=== PATIENT | female | born 1945 | race Caucasian/White ===

== ENCOUNTER 2018-02-21 09:00 | Inpatient (IN) | payer BC, MEDICARE ==
[2018-02-21 10:34] LABS: Hemoglobin 12.3 g/dL (12.0-16.0); Mean Corpuscular HGB CONC 33.1 g/dL (32.0-36.0); Mean Corpuscular Hemoglobin 32.7 pg (27.0-31.0); Mean Corpuscular Volume 98.9 fl (81.0-99.0); Mean Platelet Volume 6.7 fL (7.4-10.4); Platelet Count 244 thou/uL (130-400); RBC Distribution Width 11.3 % (11.5-14.5); Red Blood Cell (RBC) Count 3.77 mill/uL (4.20-5.40)
[2018-02-21 10:53] LABS: Anion Gap 11 mmol/L (10-20); BUN (Urea Nitrogen) 12 mg/dL (9.8-20.1); Calc. Creatinine Clearance 0 mL/min (70-130); Calcium 9.9 mg/dL (7.8-10.44); Carbon Dioxide 25 mmol/L (23-31); Chloride 105 mmol/L (98-107); Estimated GFR-MDRD 86; Glucose 107 mg/dL (80-115); Potassium 3.9 mmol/L (3.5-5.1); Sodium 137 mmol/L (136-145)
[2018-02-22] MEDS ORDERED: Heparin 10,000 UNITS/1 ML VIAL 30,000 UNITS in Sodium Chloride 0.9% 1,000 ML FS SCH (06:30)
[2018-02-22] MEDS ORDERED: Clindamycin/D5W 900 mg/50 ml Premix Bag ONE (06:44)
[2018-02-22] MEDS ORDERED: Levofloxacin 500 mg/D5W 100 ml Premix Bag ONE (06:44)
[2018-02-22] MEDS ORDERED: Midazolam HCl 2 mg/2 ml Vial ONE (06:54)
[2018-02-22] MEDS ORDERED: Fentanyl 250 MCG/5 ML VIAL ONE ×2 (07:21→09:57)
[2018-02-22] MEDS ORDERED: Midazolam HCl 5 mg/5 ml Vial ONE (07:21)
[2018-02-22] MEDS ORDERED: Fentanyl 100 MCG/2 ML VIAL ONE (09:45)
[2018-02-22] MEDS ORDERED: Ondansetron HCl/PF 4 MG/2 ML Vial IVP PRN (10:57)
[2018-02-22] MEDS ORDERED: Acetaminophen 325 MG TAB PO PRN (10:57)
[2018-02-22] MEDS ORDERED: Promethazine HCl 25 MG/ML VIAL IM PRN (10:57)
[2018-02-22] MEDS ORDERED: hydrALAZINE 20 MG/ML VIAL SLOW IVP PRN (10:57)
[2018-02-22] MEDS ORDERED: Bisacodyl 10 MG SUPP PR PRN (10:57)
[2018-02-22] MEDS ORDERED: Nitroglycerin 50 MG/250 ML BOT 250 ML IVPB PRN (10:57)
[2018-02-22] MEDS ORDERED: Potassium Chloride 20 MEQ/100 ML PREMIX BAG IVPB PRN (10:57)
[2018-02-22] MEDS ORDERED: Post-Op Insulin Drip Protocol IVPB ONE (10:57)
[2018-02-22] MEDS ORDERED: DOPamine 400 MG/D5W 250 ML 250 ML IVPB PRN (10:57)
[2018-02-22] MEDS ORDERED: HYDROcodone/Acetaminophen 5/325 mg Tablet PO PRN ×2 (10:57)
[2018-02-22] MEDS ORDERED: Mag-Al 1200 mg/1200 mg/30 ML UDCUP PO PRN (10:57)
[2018-02-22] MEDS ORDERED: Norepinephrine 8 MG/0.9% NS 250 ML IVPB PRN (10:57)
[2018-02-22] MEDS ORDERED: Guaifenesin DM 100-10/5 ML UDCUP PO PRN (10:57)
[2018-02-22] MEDS ORDERED: Fentanyl 100 MCG/2 ML VIAL SLOW IVP PRN (10:57)
[2018-02-22] MEDS ORDERED: Bisacodyl 5 MG TAB PO PRN (10:57)
[2018-02-22] MEDS ORDERED: Hetastarch 6% 500 ML 500 ML IVPB PRN (10:57)
[2018-02-22] MEDS ORDERED: Morphine 4 MG/ML VIAL SLOW IVP PRN (10:57)
[2018-02-22] MEDS ORDERED: niCARdipine HCl 25 MG in Sodium Chloride 0.9% 250 ML 240 ML IVPB PRN (10:57)
[2018-02-22] MEDS ORDERED: Magnesium 2 GM/NS 0.9% 100 ML 2 GM in Premix Bag 1 BAG IVPB SCH (11:00)
[2018-02-22] MEDS ORDERED: PHENYLEPHRINE-NS 100 MCG/ML 10 ML SYRINGE ONE ×2 (11:11→11:27)
--- NOTE | 2018-02-22 11:16 | OP ---
DATE OF PROCEDURE: 02/22/2018 PROCEDURE: Coronary bypass graft x3, saphenous vein grafts to a 1.25 mm diseased diagonal, 1.25 mm o btuse marginal, a 3 mm distal right coronary artery, vein was good. SURGEON: Dr. Domingo Gomez STEAM TRAP MAN: Dr. Palmer. PROCEDURE IN DETAIL: After adequate anesthesia had been obtained, the patient was prepped and draped . I had previously ultrasounded her left thigh and endovascular vein harvest was then performed here . Following completion of this, median sternotomy was performed, the patient heparinized. Pericardi um was opened. Traction sutures secured, and the aorta and right atrium were cannulated. Cardiopulm onary bypass was instituted. Aorta was cross-clamped and a liter of cold blood cardioplegia was give n through the aortic root. The right coronary artery was opened distally and saphenous vein anastomo sis completed here. Vein was cut to length and attention turned to the diagonal. The LAD was identi fied distally as well as a large third diagonal. The second diagonal was then identified and opened and had posterior plaquing. Saphenous vein was anastomosed here. Following completion of this, atte ntion was turned to the lateral aspect of the heart, where an obtuse marginal had been marked, it was opened and saphenous vein anastomosis completed here with the distal anastomosis accepting a 1 mm pr obe prior to completing the suture line. Following this, the cross-clamp was removed and the partial occlusion clamp placed, and 3 proximal anastomosis performed on the aortic root. Air was then freed from the graft. Distal anastomoses were hemostatic and the patient was then weaned from cardiopulmo nary bypass. Cannulas were removed, and protamine given systemically. Aortic cannulation site was s ecured with an additional 4-0 Prolene suture. Mediastinal drains x1 was placed following which the s ternum was reapproximated with #7 interrupted wire. A ring markers were placed around all 3 saphenou s vein proximal anastomosis. Vancomycin paste was used on the sternal edges as well as platelet rich blood, and platelet-poor plasma. Subcutaneous tissue and skin were closed in layers. The patient i s to be taken to the ICU in guarded condition.
[2018-02-22] MEDS ORDERED: Dextrose 50% Abboject 50 ML SYRINGE SLOW IVP PRN (11:18)
[2018-02-22] MEDS ORDERED: Dextrose 5% in Water 1,000 ML IV PRN (11:18)
[2018-02-22] MEDS ORDERED: Insulin Regular 300 UNITS/3 ML VIAL SC PRN (11:18)
[2018-02-22] MEDS ORDERED: Aminocaproic Acid 5 GM/20 ML VIAL ONE (11:27)
[2018-02-22] MEDS ORDERED: Thrombin 5000 UNITS/5 ML VIAL ONE (11:27)
[2018-02-22] MEDS ORDERED: Magnesium 5 GM/10 ML VIAL ONE (11:27)
[2018-02-22] MEDS ORDERED: Protamine Sulfate 250 MG/25 ML VIAL ONE (11:27)
[2018-02-22] MEDS ORDERED: Heparin 5,000 UNITS/ML VIAL ONE (11:27)
[2018-02-22] MEDS ORDERED: Propofol 200 MG/20 ML VIAL ONE (11:27)
[2018-02-22] MEDS ORDERED: Heparin 30,000 units/30 ml VIAL ONE (11:27)
[2018-02-22] MEDS ORDERED: Potassium Chloride 60 MEQ/30 ML VIAL ONE (11:27)
[2018-02-22] MEDS ORDERED: Lidocaine 1% PF 5 ML VIAL ONE (11:27)
[2018-02-22] MEDS: Lactated Ringer's 1,000 ML IV SCH (11:27)
[2018-02-22] MEDS ORDERED: Cardioplegic Soln 1,000 ML BAG ONE (11:27)
[2018-02-22] MEDS ORDERED: Lidocaine 2% PF 100 mg/5 ml Syringe ONE (11:27)
[2018-02-22] MEDS ORDERED: Sodium Bicarb 50 MEQ/50 ML VIAL ONE (11:27)
[2018-02-22] MEDS ORDERED: DOPamine 400 MG/10 ML VIAL ONE (11:27)
[2018-02-22] MEDS ORDERED: Calcium Chloride 1 GM/10 ML Abboject SYRINGE ONE (11:27)
[2018-02-22 11:28] LABS: Actual Bicarbonate (HCO3a) 20.4 mEq/L (22-26); Base Excess (BEa) -3.8 mEq/L (0 (+/-) 2.5); CO2 Tension 33.8 mmHg (35.0-45.0); O2 Tension (PaO2) 234.1 mmHg (80.0-100.0)
[2018-02-22 11:29] LABS: Calcium, Ionized 1.4 mmol/L (1.12-1.30); Puncture Site LINE
[2018-02-22] MEDS: Ketorolac Tromethamine 30 MG/ML VIAL IVP SCH ×3 (11:30→23:01)
[2018-02-22 11:36] LABS: #Eosinphils 0.1 thou/uL (0.0-0.7); #Lymphocytes 0.6 thou/uL (1.20-3.40); #Monocytes 0.4 thou/uL (0.11-0.59); #Neutrophils 7.7 thou/uL (1.40-6.50); %Basophils 0.4 % (0.0-1.0); %Eosinophils 1.2 % (0.0-10.0); %Lymphocytes 6.5 % (21.0-51.0); %Monocytes 4.9 % (0.0-10.0); %Neutrophils 87.1 % (42.0-75.0); Hemoglobin 9.2 g/dL (12.0-16.0); Mean Corpuscular HGB CONC 33.1 g/dL (32.0-36.0); Mean Corpuscular Hemoglobin 33.3 pg (27.0-31.0); Mean Platelet Volume 6.6 fL (7.4-10.4); Platelet Count 144 thou/uL (130-400); RBC Distribution Width 11.3 % (11.5-14.5); Red Blood Cell (RBC) Count 2.77 mill/uL (4.20-5.40); White Blood Cell (WBC) Count 8.9 thou/uL (4.8-10.8)
[2018-02-22 11:42] LABS: PTT 28.1 SEC (22.9-36.1)
[2018-02-22 11:43] LABS: INR-International Normal Ratio 1.4; Prothrombin Time 17.7 SEC (12.0-14.7)
[2018-02-22 11:56] LABS: Anion Gap 9 mmol/L (10-20); BUN (Urea Nitrogen) 8 mg/dL (9.8-20.1); Calc. Creatinine Clearance 77 mL/min (70-130); Calcium 9.1 mg/dL (7.8-10.44); Carbon Dioxide 19 mmol/L (23-31); Chloride 113 mmol/L (98-107); Estimated GFR-MDRD Greater than 90; Glucose 162 mg/dL (80-115); Potassium 4.1 mmol/L (3.5-5.1); Sodium 137 mmol/L (136-145)
[2018-02-22] MEDS: Clindamycin/D5W 900 MG in Premix Bag 1 BAG IVPB SCH ×3 (12:38→23:01)
--- NOTE | 2018-02-22 12:51 | RAD ---
SINGLE VIEW CHEST: Date: 02/22/18 COMPARISON: None. HISTORY: Status post open heart surgery. FINDINGS: Single view of the chest shows normal sized cardiomediastinal silhouette. The patient is status post sternotomy. A CABG has been performed. There is a right subclavian central venous catheter with its t ip in the superior vena cava. An endotracheal tube is seen with its tip at the lower border of the cl avicles. A mediastinal drain is seen. There is no evidence of consolidation, mass, pneumothorax, or p leural effusion. IMPRESSION: Appropriate position of lines and tubes status post sternotomy. POS: [facility]
[2018-02-22 13:13] VITALS: BMI 23.4
[2018-02-22] MEDS: Fentanyl 100 MCG/2 ML VIAL SLOW IVP PRN ×2 (16:06→21:58)
[2018-02-22 16:25] LABS: Actual Bicarbonate (HCO3a) 18.5 mEq/L (22-26); Base Excess (BEa) -6.4 mEq/L (0 (+/-) 2.5); CO2 Tension 34.7 mmHg (35.0-45.0); Hemoglobin (Hb) 9.4 g/dL (12.0-16.0); O2 Tension (PaO2) 175.6 mmHg (80.0-100.0); pH, Arterial 7.35 (7.35-7.45)
[2018-02-22 16:26] LABS: ALV-art Gradient 66.225 (0-20); Calcium, Ionized 1.3 mmol/L (1.12-1.30); Puncture Site LINE
[2018-02-22 17:36] LABS: Hemoglobin 9.7 g/dL (12.0-16.0)
[2018-02-22 17:59] LABS: Potassium 3.7 mmol/L (3.5-5.1)
[2018-02-22] MEDS ORDERED: Simvastatin 20 MG TAB PO SCH (21:00)
[2018-02-22] MEDS ORDERED: Famotidine/PF 20 mg/2ml Vial SLOW IVP SCH (21:00)
[2018-02-23] MEDS: Lactated Ringer's 1,000 ML IV SCH (01:48)
[2018-02-23 04:16] LABS: #Lymphocytes 0.7 thou/uL (1.20-3.40); #Monocytes 0.7 thou/uL (0.11-0.59); #Neutrophils 6.4 thou/uL (1.40-6.50); %Basophils 0.3 % (0.0-1.0); %Eosinophils 0.3 % (0.0-10.0); %Lymphocytes 8.8 % (21.0-51.0); %Monocytes 9.4 % (0.0-10.0); %Neutrophils 81.2 % (42.0-75.0); Hemoglobin 8.5 g/dL (12.0-16.0); Mean Corpuscular HGB CONC 33.3 g/dL (32.0-36.0); Mean Corpuscular Hemoglobin 32.9 pg (27.0-31.0); Mean Corpuscular Volume 98.7 fl (81.0-99.0); Mean Platelet Volume 7.1 fL (7.4-10.4); Platelet Count 123 thou/uL (130-400); RBC Distribution Width 11.5 % (11.5-14.5); Red Blood Cell (RBC) Count 2.58 mill/uL (4.20-5.40); White Blood Cell (WBC) Count 7.9 thou/uL (4.8-10.8)
[2018-02-23 04:26] LABS: Anion Gap 10 mmol/L (10-20); BUN (Urea Nitrogen) 8 mg/dL (9.8-20.1); Calc. Creatinine Clearance 87 mL/min (70-130); Calcium 7.8 mg/dL (7.8-10.44); Carbon Dioxide 20 mmol/L (23-31); Chloride 113 mmol/L (98-107); Estimated GFR-MDRD Greater than 90; Glucose 119 mg/dL (80-115); Potassium 3.9 mmol/L (3.5-5.1); Sodium 139 mmol/L (136-145)
[2018-02-23] MEDS: Clindamycin/D5W 900 MG in Premix Bag 1 BAG IVPB SCH (05:00)
[2018-02-23] MEDS: Ketorolac Tromethamine 30 MG/ML VIAL IVP SCH ×4 (05:14→23:55)
[2018-02-23] MEDS ORDERED: Mineral Oil ENEMA PR PRN (06:59)
[2018-02-23] MEDS ORDERED: Bisacodyl 5 MG TAB PO PRN (06:59)
[2018-02-23] MEDS ORDERED: Ondansetron HCl/PF 4 MG/2 ML Vial IVP PRN (06:59)
[2018-02-23] MEDS ORDERED: Mag-Al 1200 mg/1200 mg/30 ML UDCUP PO PRN (06:59)
[2018-02-23] MEDS ORDERED: Milk Of Magnesia 30 ML UDCUP PO PRN (06:59)
[2018-02-23] MEDS ORDERED: Bisacodyl 10 MG SUPP PR PRN (06:59)
[2018-02-23] MEDS ORDERED: Fentanyl 100 MCG/2 ML VIAL SLOW IVP PRN (06:59)
[2018-02-23] MEDS ORDERED: HYDROcodone/Acetaminophen 5/325 mg Tablet PO PRN (06:59)
[2018-02-23] MEDS ORDERED: Acetaminophen 325 MG TAB PO PRN (06:59)
[2018-02-23] MEDS ORDERED: Artificial Tears 18 DROP/0.9 ML EA EYE PRN (06:59)
[2018-02-23] MEDS ORDERED: Guaifenesin DM 100-10/5 ML UDCUP PO PRN (06:59)
[2018-02-23] MEDS ORDERED: Nitroglycerin 0.4 MG TAB (25 Tab Bottle) SL PRN (06:59)
[2018-02-23] MEDS ORDERED: Zolpidem Tartrate 5 MG TAB PO PRN (06:59)
--- NOTE | 2018-02-23 08:27 | RAD ---
CHEST 1 VIEW: HISTORY: Surgery. Followup. COMPARISON: 02/22/18. FINDINGS: Cardiac silhouette is magnified and enlarged. Pulmonary vasculature is accentuated by shallow inspir ation. Mediastinum is midline with postoperative changes. Mediastinal drain and right subclavian ce ntral venous catheter remain in place. Endotracheal catheter is no longer visible. Mild bibasilar a telectasis is stable. Dystrophic calcification associated with the left rotator cuff is now better v isualized. IMPRESSION: Interval extubation. Stable postoperative appearance of the chest. POS: [facility]
[2018-02-23] MEDS ORDERED: Aspirin 325 MG TAB PO SCH (09:00)
[2018-02-23] MEDS: Aspirin 325 mg Enteric Coated Tablet PO SCH (09:36)
[2018-02-23] MEDS: Famotidine 20 MG TAB PO SCH ×2 (09:36→20:41)
[2018-02-23] MEDS: Atorvastatin Calcium 40 MG TAB PO SCH (09:36)
[2018-02-23] MEDS: Polyethylene Glycol 3350 17 GM Packet PO SCH (09:43)
[2018-02-23] MEDS: HYDROcodone/Acetaminophen 5/325 mg Tablet PO PRN ×3 (12:08→20:39)
[2018-02-24] MEDS: HYDROcodone/Acetaminophen 5/325 mg Tablet PO PRN (00:20)
[2018-02-24 04:41] LABS: #Monocytes 0.9 thou/uL (0.11-0.59); #Neutrophils 6.2 thou/uL (1.40-6.50); %Basophils 0.4 % (0.0-1.0); %Eosinophils 0.3 % (0.0-10.0); %Lymphocytes 12.1 % (21.0-51.0); %Monocytes 11.2 % (0.0-10.0); %Neutrophils 75.9 % (42.0-75.0); Hemoglobin 8.3 g/dL (12.0-16.0); Mean Corpuscular HGB CONC 33.3 g/dL (32.0-36.0); Mean Corpuscular Hemoglobin 33.3 pg (27.0-31.0); Platelet Count 125 thou/uL (130-400); RBC Distribution Width 11.6 % (11.5-14.5); Red Blood Cell (RBC) Count 2.49 mill/uL (4.20-5.40); White Blood Cell (WBC) Count 8.2 thou/uL (4.8-10.8)
[2018-02-24] MEDS: Ketorolac Tromethamine 30 MG/ML VIAL IVP SCH (05:26)
[2018-02-24] MEDS: Famotidine 20 MG TAB PO SCH ×2 (07:23→21:50)
[2018-02-24] MEDS: Aspirin 325 mg Enteric Coated Tablet PO SCH (07:23)
[2018-02-24] MEDS: Magnesium Oxide 400 MG TAB PO SCH (07:23)
[2018-02-24] MEDS: Atorvastatin Calcium 40 MG TAB PO SCH (07:24)
[2018-02-24] MEDS: Polyethylene Glycol 3350 17 GM Packet PO SCH (07:27)
[2018-02-24] MEDS: traMADol HCl 50 MG TAB PO PRN ×3 (10:39→21:50)
[2018-02-25] MEDS: traMADol HCl 50 MG TAB PO PRN (04:58)
--- NOTE | 2018-02-25 06:37 | DIS ---
HOSPITAL COURSE: A 72-year-old female admitted and underwent coronary artery bypass graft x3 to the right OM and diagonal on 02/22/2018. She made good progress each day and will be discharged home on 02/25/2018 to resume her home medications plus tramadol 50 mg tablets for pain and aspirin 81 mg a da y. Discharge and follow up instructions have been given.
[2018-02-25 07:29] VITALS: TEMP 98.1
[2018-02-25] MEDS: Atorvastatin Calcium 40 MG TAB PO SCH (09:26)
[2018-02-25] MEDS: Aspirin 325 mg Enteric Coated Tablet PO SCH (09:26)
[2018-02-25] MEDS: Famotidine 20 MG TAB PO SCH (09:26)
[2018-02-25] MEDS: Polyethylene Glycol 3350 17 GM Packet PO SCH (09:27)
[2018-02-25] MEDS: Magnesium Oxide 400 MG TAB PO SCH (09:27)
[2018-02-25 11:07] VITALS: BP 130/59
--- NOTE | 2018-02-25 13:15 | PRG ---
DATE OF SERVICE: 02/25/2018 HISTORY: Ms. Langley is doing very well. She states she feels better than she has in several month s. She is ready for discharge. PHYSICAL EXAMINATION: VITAL SIGNS: Blood pressure 130/59, pulse 72, temperature 98.1. LUNGS: Clear to auscultation. CARDIAC: Regular rate and rhythm. ABDOMEN: Soft, nontender, nondistended. EXTREMITIES: No edema. IMPRESSION: 1. Coronary artery disease. 2. Status post bypass surgery. RECOMMENDATIONS: Ms. Langley appears to be doing well. She is currently on beta temitope therapy, s tatin therapy and aspirin. It would be okay for discharge from my standpoint. Would also encourage outpatient rehab. Plan is to follow up with us in the next 1 week.
[2018-03-01 10:16] LABS: CO2 Tension 32.1 mmHg (35.0-45.0); pH, Arterial 7.43 (7.35-7.45)
[2018-03-01 10:17] LABS: Base Excess (BEa) -2.6 mEq/L (0 (+/-) 2.5); Hemoglobin (Hb) 10.1 g/dL (12.0-16.0); O2 Tension (PaO2) 549.4 mmHg (80.0-100.0)
[2018-03-01 10:18] LABS: CO2 Tension 36.5 mmHg (35.0-45.0); pH, Arterial 7.39 (7.35-7.45)
[2018-03-01 10:18] LABS: Analyzer IN Cardio OR; Calcium, Ionized 1.1 mmol/L (1.12-1.30); Puncture Site ALINE
[2018-03-01 10:19] LABS: Actual Bicarbonate (HCO3a) 21.6 mEq/L (22-26); Base Excess (BEa) -2.9 mEq/L (0 (+/-) 2.5); Hematocrit-ABG 29.1 % (36.0-47.0); Hemoglobin (Hb) 9.6 g/dL (12.0-16.0); O2 Tension (PaO2) 556.1 mmHg (80.0-100.0)
[2018-03-01 10:20] LABS: Analyzer IN Cardio OR; Calcium, Ionized 1.1 mmol/L (1.12-1.30); Puncture Site ALINE
[2018-03-01 10:22] LABS: Base Excess (BEa) -1.2 mEq/L (0 (+/-) 2.5); CO2 Tension 35.7 mmHg (35.0-45.0); Hematocrit-ABG 21.4 % (36.0-47.0); Hemoglobin (Hb) 7.3 g/dL (12.0-16.0); O2 Tension (PaO2) 532.3 mmHg (80.0-100.0); pH, Arterial 7.43 (7.35-7.45)
[2018-03-01 10:23] LABS: Analyzer IN Cardio OR; Puncture Site ALINE
[2018-03-01 10:24] LABS: Actual Bicarbonate (HCO3a) 22.1 mEq/L (22-26); Base Excess (BEa) -3.2 mEq/L (0 (+/-) 2.5); CO2 Tension 40.6 mmHg (35.0-45.0); Hematocrit-ABG 23.7 % (36.0-47.0); O2 Tension (PaO2) 491.5 mmHg (80.0-100.0); pH, Arterial 7.35 (7.35-7.45)
[2018-03-01 10:25] LABS: Analyzer IN Cardio OR; Calcium, Ionized 1.1 mmol/L (1.12-1.30); Puncture Site ALINE
[2018-03-01 10:25] LABS: CO2 Tension 37.6 mmHg (35.0-45.0); pH, Arterial 7.37 (7.35-7.45)
[2018-03-01 10:26] LABS: Actual Bicarbonate (HCO3a) 21.1 mEq/L (22-26); Base Excess (BEa) -3.8 mEq/L (0 (+/-) 2.5); O2 Tension (PaO2) 509.4 mmHg (80.0-100.0)
[2018-03-01 10:27] LABS: Analyzer IN Cardio OR; Calcium, Ionized 1.5 mmol/L (1.12-1.30); Hemoglobin (Hb) 8.7 g/dL (12.0-16.0); Puncture Site ALINE
== END 2018-02-25 10:55 | disposition home or self-care (01) | DRG 236 ==
LOC: SURG A 02-22 05:51 → CCU 02-22 10:34 → 2NO 02-24 18:03
PROVIDERS: ADMIT Thoracic Surgery (Cardiothoracic Vascular Surgery); ATTEND Thoracic Surgery (Cardiothoracic Vascular Surgery)
PROC: 021209W Bypass Coronary Artery, Three Arteries from Aorta with Autologous Venous Tissue, Open Approach (ICD-10-PCS; principal; 2018-02-22)
PROC: 06BQ4ZZ Excision of Left Saphenous Vein, Percutaneous Endoscopic Approach (ICD-10-PCS; 2018-02-22)
PROC: 5A1221Z Performance of Cardiac Output, Continuous (ICD-10-PCS; 2018-02-22)
DX: I25.10 Atherosclerotic heart disease of native coronary artery without angina pectoris (principal); Z87.891 Personal history of nicotine dependence
CPT/HCPCS: 36415; 36416; 36430; 71045; 80048; 82805; 84132; 85025; 85027; 85610; 85730; 86850; 86900; 86901; 93005; 93010; 93798; 94002; J1265; J1642; J1644; J1815; J1885; J1956; J2001; J2250; J2405; J2704; J2720; J3010; J3370; J3475; J3480; J3490; J7050; P9045; S0017; S0028

== ENCOUNTER 2018-06-27 09:25 | Outpatient (CLI) | payer BC, MEDICARE | END 2018-06-27 09:26 | disposition home or self-care (01) | LOC: BICMAMMO 09:25 | PROVIDERS: ATTEND Internal Medicine | DX: Z08 Encounter for follow-up examination after completed treatment for malignant neoplasm (principal); Z85.3 Personal history of malignant neoplasm of breast; Z80.3 Family history of malignant neoplasm of breast | CPT/HCPCS: 77066; G0279 ==

== ENCOUNTER 2018-09-09 07:55 | Outpatient (CLI) | payer BC, MEDICARE ==
--- NOTE | 2018-09-09 10:08 | BD ---
DEXA BONE DENSITY STUDY: HISTORY: A 73-year-old female with osteoporosis. LUMBAR SPINE BMD (g/cm2) T-SCORE L1 0.696 -2.7 L2 0.694 -3.0 L3 0.824 -3.3 L4 0.779 -2.4 TOTAL 0.73 -2.9 Evidence for osteoporosis with increased risk for fracture. Bone mineral density has improved approx imately 1.8% from the prior, 09/10/2017, study. FEMUR BMD (g/cm2) T-SCORE LEFT FEMORAL NECK 0.550 -2.7 TOTAL 0.694 -2.0 Evidence for osteoporosis with high risk for fracture. Bone mineral density has decreased approximat jewel 1.9% from 09/10/2017. FRAX score for major osteoporotic fracture is 15% and hip fracture is 4.5%. POS: [facility]
== END 2018-09-09 07:56 | disposition home or self-care (01) ==
LOC: BICMAMMO 07:55
PROVIDERS: ATTEND Internal Medicine Rheumatology
DX: M81.0 Age-related osteoporosis without current pathological fracture (principal); Z79.899 Other long term (current) drug therapy
CPT/HCPCS: 77080

== ENCOUNTER 2019-03-29 10:35 | Outpatient (CLI) | payer BC, MEDICARE ==
--- NOTE | 2019-03-29 11:09 | ULT ---
THYROID ULTRASOUND INDICATION: History of thyroid cyst TECHNIQUE: Grayscale and color Doppler images were obtained of the thyroid gland. COMPARISON: CT of the soft tissues of the neck dated March 21, 2015 FINDINGS: Right thyroid lobe: The right thyroid lobe measures 4.6 x 1.6 x 1.5 cm. There are numerous scattered small cysts within the right thyroid lobe. There is a mixed cystic and solid nodule is seen within the right mid thyroid lobe measuring 6 mm. This is consistent with a TIRADS 2 lesion. Small 4 mm hypo echoic to isoechoic nodule is seen within the right thyroid lobe. This is consistent with a subcentimeter TIRADS 3 lesions. Thyroid isthmus: The thyroid isthmus measures 0.2 cm. Left thyroid lobe: The left thyroid lobe measures 4.5 x 1.6 x 1.1 cm. There are small cysts within th e left thyroid lobe. The largest is seen within the inferior pole measuring 3 mm. This is consistent with a TIRADS 1 lesion. IMPRESSION: 1. No suspicious thyroid lesions identified. No sonographic follow up is recommended.
== END 2019-03-29 10:36 | disposition home or self-care (01) ==
LOC: BICULT 10:35
PROVIDERS: ATTEND Internal Medicine Cardiovascular Disease
DX: E04.1 Nontoxic single thyroid nodule (principal)
CPT/HCPCS: 76536

== ENCOUNTER 2019-09-05 09:20 | Outpatient (CLI) | payer BC, MEDICARE ==
--- NOTE | 2019-09-05 09:57 | BD ---
EXAM: DEXA bone density examination HISTORY: 74-year-old postmenopausal female for screening COMPARISON: None FINDINGS: L1--bone mineral density 0.736 g/sq cm; T score -2.3 L2--bone mineral density 0.752 g/sq cm; T score -2.5 L3--bone mineral density 0.756 g/sq cm; T score -3.0 L4--bone mineral density 0.830 g/sq cm; T score -2.1 Total L1-L4--bone mineral density 0.773 g/sq cm; T score -2.5 Left femoral neck--bone mineral density0.573; T score -2.5 Total proximal left femur--bone mineral density 0.760; T score -1.5 IMPRESSION: Osteoporosis
== END 2019-09-05 09:21 | disposition home or self-care (01) ==
LOC: BICMAMMO 09:20
PROVIDERS: ATTEND Internal Medicine Rheumatology
DX: M81.0 Age-related osteoporosis without current pathological fracture (principal)
CPT/HCPCS: 77080

== ENCOUNTER 2019-12-28 10:51 | Day surgery (SDC) | payer BC, MEDICARE ==
[2019-12-28] MEDS ORDERED: Esmolol 100 MG/10 ML VIAL ONE (10:56)
[2019-12-28] MEDS ORDERED: PROPOFOL 200 MG/20 ML VIAL ONE (10:56)
[2019-12-28] MEDS ORDERED: PHENYLEPHRINE-NS 100 MCG/ML 10 ML SYRINGE ONE (10:56)
[2019-12-28] MEDS ORDERED: Succinylcholine Chloride 20 MG/ML 10 ml SYRINGE FS ONE (10:56)
[2019-12-28] MEDS ORDERED: EPHEDRINE 25 MG/5 ML SYRINGE ONE (10:56)
[2019-12-28] MEDS ORDERED: Metoprolol Tartrate 5 MG/5 ML VIAL ONE (10:56)
[2019-12-28] MEDS ORDERED: Ondansetron PF 4 MG/2 ML Vial ONE (11:35)
[2019-12-28 12:04] LABS: #Basophils 0.1 thou/uL (0.0-0.2); #Monocytes 0.6 thou/uL (0.11-0.59); #Neutrophils 7.3 thou/uL (1.40-6.50); %Basophils 1.1 % (0.0-1.0); %Eosinophils 0.2 % (0.0-10.0); %Lymphocytes 11.1 % (21.0-51.0); %Monocytes 6.6 % (0.0-10.0); Hemoglobin 13.5 g/dL (12.0-16.0); Mean Corpuscular HGB CONC 32.4 g/dL (32.0-36.0); Mean Corpuscular Volume 98.8 fL (78.0-98.0); Mean Platelet Volume 6.6 fL (7.4-10.4); Platelet Count 229 thou/uL (130-400); RBC Distribution Width 11.3 % (11.5-14.5); Red Blood Cell (RBC) Count 4.22 mill/uL (4.20-5.40)
[2019-12-28 12:29] LABS: ALT (SGPT) 19 U/L (8-55); AST (SGOT) 23 U/L (5-34); Albumin 4.5 g/dL (3.4-4.8); Alkaline Phosphatase 40 U/L (40-110); Anion Gap 18 mmol/L (10-20); BUN (Urea Nitrogen) 17 mg/dL (9.8-20.1); Bilirubin, Total 0.8 mg/dL (0.2-1.2); Calc. Creatinine Clearance 0 mL/min (70-130); Calcium 8.8 mg/dL (7.8-10.44); Carbon Dioxide 21 mmol/L (23-31); Chloride 109 mmol/L (98-107); Estimated GFR-MDRD 75; Globulin 2.8 g/dL (2.4-3.5); Glucose 97 mg/dL (83-110); Lipase 20 U/L (8-78); Potassium 4.6 mmol/L (3.5-5.1); Protein, Total 7.3 g/dL (6.0-8.3); Sodium 143 mmol/L (136-145)
[2019-12-28 13:04] LABS: Bacteria/HPF None Seen HPF (None Seen); Bilirubin Negative (Negative); Blood, Urine Negative (Negative); Clarity Turbid (Clear); Glucose, Urine (Dipstick) Normal (Negative); Leukocyte Negative Leu/uL (Negative); Nitrite Negative (Negative); Protein, Urine (Dipstick) 100 mg/dL (Neg-Trace); RBC/HPF 0-3 HPF (0-3); Squamous Epithelial 0-3 HPF (0-3)
[2019-12-28 13:16] LABS: Renal Epithelial 0-3 HPF (None Seen); Transitional Epithelial 0-3 HPF (None Seen)
--- NOTE | 2019-12-28 16:06 | HP ---
REASON FOR CONSULTATION: Esophageal food bolus impaction. CONSULTING PROVIDER: Chetan Mcdaniel MD HISTORY OF PRESENT ILLNESS: The patient is a 74-year-old female with past medical history of coronary artery disease status post 3-vessel CABG in 2018, breast cancer status post lumpectomy, hyperlipidemia, and GERD, presenting with complaints of dysphagia. She states that she was in her usual state of health until approximately 24 hours ago when she experienced acute onset of dysphagia, characterized as a sensation that food was getting stuck in the level of the mid chest. However, with drinking water, it slowly resolved, and yesterday morning, the patient was able to tolerate food without any difficulty. However, last night, the patient was consuming ribs, and after the 1st bite, noticed that she had increased chest discomfort in addition to dysphagia that prompted nausea and vomiting. Over the next 6 to 8 hours, the patient was unable to tolerate any ingested foodstuff whether it be solid or liquid in addition to inability to tolerate her own secretions. With this inability to tolerate her own secretions and with continued nausea and vomiting, she sought healthcare assistance at the [facility] ER for further evaluation. On evaluation in the ER, the patient states in addition to the nausea and vomiting she had been having intermittent episodes of diarrhea in addition to the inability to tolerate her own secretions with an emesis bag at bedside. However, she denies any fevers, chills, hematemesis, melena, hematochezia, or recent weight loss. Upon further questioning, she denies any history of esophageal strictures, but does have a longstanding history of acid reflux, for which the patient had been placed on Dexilant in the past with improvement of her symptoms. More recently, she had been having more acid reflux symptoms and was placed back on a medication that she could not recall at this time. REVIEW OF SYSTEMS: A 10-category review of systems was obtained with all responses negative except for the pertinent positives as listed in HPI. PAST MEDICAL HISTORY: As per HPI. PAST SURGICAL HISTORY: 1. Hysterectomy. 2. Tonsillectomy. 3. Lumpectomy x2. FAMILY HISTORY: Denies any GI malignancies. SOCIAL HISTORY: Quit smoking tobacco approximately 40 years ago. Drinks approximately one glass of wine per week. Denies any illicit drug use. OUTPATIENT MEDICATIONS: Reviewed. ALLERGIES: BACITRACIN, NEOMYCIN, PENICILLIN, AND POLYMIXIN B. PHYSICAL EXAMINATION: VITAL SIGNS: No documented vital signs are available for review. GENERAL: The patient was lying in bed, in no acute distress. Alert and oriented x4. HEENT: Normocephalic and atraumatic. Neck is supple. No JVD or scleral icterus noted. CARDIOVASCULAR: Tachycardic rate, but regular rhythm. A 3/6 systolic ejection murmur was best heard at the right upper sternal border with extension into the left sternal border. RESPIRATORY: Clear to auscultation bilaterally with no discernable wheezes or rales. ABDOMEN: Normoactive bowel sounds. Soft, nondistended. Mild tenderness to palpation in the midepigastric region. EXTREMITIES: No cyanosis, clubbing, or edema. LABORATORY DATA: CBC with a white blood cell count of 9, hemoglobin 13.5, hematocrit 41.6, and platelets 229. Chemistry with a sodium of 143, potassium 4.6, chloride 109, CO2 of 21, BUN 17, creatinine 0.76, and glucose 97. AST 23, ALT 19, alkaline phosphatase 40, total bilirubin 0.8, albumin 4.5, and lipase 20. IMAGING DATA: No current GI imaging is available for review. ASSESSMENT AND PLAN: The patient is a 74-year-old female with past medical history of coronary artery disease status post 3-vessel coronary artery bypass graft, breast cancer, hyperlipidemia, and gastroesophageal reflux disease, presenting with acute onset of food bolus impaction. Food bolus impaction/dysphagia: The patient is presenting with acute onset of dysphagia, characterized as the sensation of food stuck in the mid chest shortly after the ingestion of ribs yesterday evening. Since that time, she has had significant nausea, vomiting, diarrhea, and inability to tolerate her own secretions with an emesis bag at bedside. Attempts to drink various liquids have been unsuccessful and inducing vomiting has also been unsuccessful to dislodge the food bolus. At this time, given her history of acid reflux, the possibility of an esophageal stricture contributing to her current clinical situation is more likely. The differential could include esophageal bar, esophageal stricture, swelling/edema associated with acid reflux, esophageal dysmotility, eosinophilic esophagitis (less likely) and/or gastrointestinal neoplasm. RECOMMENDATIONS: 1. Would continue n.p.o. status in anticipation for urgent upper endoscopy. 2. Would proceed with urgent upper endoscopy given the history consistent with a food bolus impaction and increased risk of esophageal perforation. 3. The patient will need to be on a PPI in the postprocedure period, most likely given her history of acid reflux. 4. Further recommendations to follow upper endoscopy. We will continue to follow. Please call with any questions. Job ID: [id number]
--- NOTE | 2019-12-28 21:33 | OP ---
DATE OF PROCEDURE: 12/28/2019 PROCEDURE PERFORMED: Esophagogastroduodenoscopy with food bolus removal. INDICATION FOR PROCEDURE: Food bolus impaction, dysphagia. DESCRIPTION OF PROCEDURE: After the risks and benefits of the procedure were explained to the patient including risks of bleeding, infection, perforation, reactions to anesthesia, aspiration and/or pain, informed consent was obtained. The patient was then taken to the endoscopy suite, where general anesthesia was administered followed by endotracheal tube intubation. Once the patient was sedated and intubated, she was maneuvered into the left lateral decubitus position, followed by introduction of the standard gastroscope, which was then advanced into the esophagus, stomach, and the proximal small intestines with the findings listed below. The patient tolerated the procedure well with no immediate perioperative complications. Upon conclusion of the procedure, all equipment was removed from the patient and she was transferred to PACU in satisfactory condition. FINDINGS: Esophagus: A 1.5 to 2 cm patch of salmon-colored mucosa was seen in the proximal esophagus consistent with an inlet patch. No biopsies were taken for evaluation given the food bolus. A large food bolus was encountered at approximately 35 cm past the incisors in the mid to distal esophagus. The food bolus itself was completely obstructing the esophageal lumen and attempts to gently push the bolus into the stomach were initially unsuccessful. Using a Raptor tooth forceps, the food bolus itself was then fragmented into multiple pieces and removed either with direct withdrawal from the Raptor forceps or using a Marroquin Net. Once a sufficient amount of the food bolus was fragmented, again gentle pressure was applied to the food bolus and at that point, it was successfully pushed into the gastric lumen. Evaluation of the esophageal mucosa at that point showed significant mucosal erythema, multiple linear ulcerations that were superficial but measuring approximately 4 to 7 mm in length at the area of the food bolus impaction. Mild oozing of blood was also noted in that region as well. There was no observed overt stricture, but there was a mild narrowing of the distal esophagus. In the distal esophagus, there was also increased mucosal erythema at the gastroesophageal junction with small erosions extending proximally from the GE junction. These erosions extended less than 1 cm in length and did not extend between more than one esophageal fold. There was some mild difficulty passing the gastroscope through the gastroesophageal junction in the stomach, but was advanced without significant difficulty. Otherwise, there was no evidence of significant masses or neoplastic process in the distal esophagus. Stomach: Normal-appearing mucosa was seen in the gastric cardia, fundus, body, greater curvature, antrum, and incisura. There was no evidence of erosions, ulcerations, mass, lesions, or active/recent bleeding. The food bolus was seen within the gastric body after it was gently placed into the stomach and measured approximately 4 to 5 cm in length. Duodenum: Normal-appearing mucosa was seen in both the duodenal bulb and second portion of the duodenum. There was no evidence of erosions, ulcerations, mass, lesions, or active/recent bleeding. IMPRESSION: 1. A large food bolus seen at approximately 35 cm past the incisors, successfully removed with Raptor forceps, Marroquin Net and gentle pressure into the stomach. 2. Significant erosions, small ulcerations, and mild disruption of the esophageal mucosa were seen at the site of the food bolus impaction consistent with pressure exerted from the food bolus. 3. Mild narrowing of the distal esophagus was exhibited, but there was no evidence of overt stricture formation. 4. Mildly increased mucosal erythema at the gastroesophageal junction consistent with LA grade A, reflux mediated erosive esophagitis. Presence of Moreno esophagus cannot be ruled out at this time. 5. A 1.5 cm inlet patch seen in the proximal esophagus. RECOMMENDATIONS: 1. Would place the patient on a liquid diet for the next 24 to 48 hours given the significant edema and ulceration on upper endoscopy today, then advance diet as tolerated. 2. Would place the patient on omeprazole 40 mg daily in light of reflux esophagitis. 3. I encouraged the patient for adequate chewing of her food before initiation of swallowing. 4. Would have the patient follow up in the GI clinic as scheduled next week with Dr. Link. 5. The patient will most likely need repeat EGD in the future for further evaluation of the gastroesophageal junction and possible Moreno esophagus as well as repeat evaluation of the narrowing that might be amenable to dilation (dilation not performed today due to significant ulceration and erythema with increased risk of perforation with intervention). Job ID: [id number]
== END 2019-12-28 16:42 | disposition home or self-care (01) ==
LOC: ERS 10:51 → NM 14:26
PROVIDERS: ATTEND Internal Medicine
PROC: 0DC58ZZ Extirpation of Matter from Esophagus, Via Natural or Artificial Opening Endoscopic (ICD-10-PCS; principal; 2019-12-28)
DX: T18.128A Food in esophagus causing other injury, initial encounter (principal); I25.10 Atherosclerotic heart disease of native coronary artery without angina pectoris; E78.5 Hyperlipidemia, unspecified; K21.9 Gastro-esophageal reflux disease without esophagitis; Z87.891 Personal history of nicotine dependence; Z88.0 Allergy status to penicillin; Z88.1 Allergy status to other antibiotic agents; Z95.1 Presence of aortocoronary bypass graft
CPT/HCPCS: 36415; 80053; 81003; 81015; 83605; 83690; 85025; 96361; 96374; J2405; J2704

== ENCOUNTER 2020-09-04 08:15 | Outpatient (CLI) | payer BC, MEDICARE ==
--- NOTE | 2020-09-04 09:34 | BD ---
DEXA bone density scan: 09/04/2020 COMPARISON: 09/05/2019 HISTORY: Postmenopausal female undergoing screening for osteoporosis. FINDINGS: Lumbar Spine BMD (g/cm2) L1 0.750 T-Score -2.2 (previous -2.3) L2 0.754 T-Score -2.5 (previous -2.5) L3 0.815 T-Score -2.4 (previous -3.0) L4 0.911 T-Score -1.4 (previous -2.1) L1-L4 0.815 T-Score -2.1 (previous -2.5) Femoral Neck 0.621 T-Score -2.1 (previous -2.5) Total Femur 0.817 T-Score -1.0 (previous -1.5) The FRAX-WHO fracture risk assessment tool is not reported secondary to a history of being treated fo r osteoporosis. IMPRESSION: Lumbar spine and femoral neck osteopenia correlating with a moderately increased risk for fracture. Transcribed Date/Time: 09/04/2020 11:11 AM
== END 2020-09-04 08:16 | disposition home or self-care (01) ==
LOC: BICMAMMO 08:15
PROVIDERS: ATTEND Internal Medicine Rheumatology
DX: M81.0 Age-related osteoporosis without current pathological fracture (principal); M85.859 Other specified disorders of bone density and structure, unspecified thigh
CPT/HCPCS: 77080

== ENCOUNTER 2021-04-07 23:22 | Emergency (ER) | payer BC, MEDICARE ==
[2021-04-07 23:43] LABS: #Basophils 0.1 thou/uL (0.0-0.2); #Eosinphils 0.1 thou/uL (0.0-0.7); #Lymphocytes 2.5 thou/uL (1.20-3.40); #Monocytes 0.5 thou/uL (0.11-0.59); #Neutrophils 2.9 thou/uL (1.40-6.50); %Basophils 1.8 % (0.0-1.0); %Eosinophils 1.3 % (0.0-10.0); %Lymphocytes 41.3 % (21.0-51.0); %Monocytes 7.9 % (0.0-10.0); %Neutrophils 47.8 % (42.0-75.0); Hemoglobin 11.9 g/dL (12.0-16.0); Mean Corpuscular HGB CONC 33.6 g/dL (32.0-36.0); Mean Corpuscular Hemoglobin 34.1 pg (27.0-31.0); Mean Platelet Volume 6.4 fL (7.4-10.4); Platelet Count 232 thou/uL (130-400); RBC Distribution Width 11.8 % (11.5-14.5)
[2021-04-08 00:03] LABS: ALT (SGPT) 34 U/L (8-55); AST (SGOT) 46 U/L (5-34); Albumin 3.7 g/dL (3.4-4.8); Alkaline Phosphatase 45 U/L (40-110); Anion Gap 16 mmol/L (10-20); BUN (Urea Nitrogen) 5 mg/dL (9.8-20.1); Bilirubin, Total 0.3 mg/dL (0.2-1.2); Calc. Creatinine Clearance 0 mL/min (70-130); Calcium 8.2 mg/dL (7.8-10.44); Carbon Dioxide 20 mmol/L (23-31); Chloride 103 mmol/L (98-107); Globulin 2.6 g/dL (2.4-3.5); Glucose 92 mg/dL (83-110); Lipase 44 U/L (8-78); Potassium 4.1 mmol/L (3.5-5.1); Protein, Total 6.3 g/dL (5.8-8.1); Sodium 135 mmol/L (136-145)
[2021-04-08 01:00] LABS: Bilirubin Negative (Negative); Blood, Urine Negative (Negative); Clarity Clear (Clear); Glucose, Urine (Dipstick) Normal (Negative); Ketone, Urine Negative (Negative); Leukocyte Negative Leu/uL (Negative); Nitrite Negative (Negative); Protein, Urine (Dipstick) 20 mg/dL (Neg-Trace); Specific Gravity, Urine 1.011 (1.002-1.036); Urobilinogen Normal mg/dL (Less than 2)
[2021-04-08] MEDS ORDERED: Iopamidol-370 76% 500 ML 1 ML ONE (09:56)
== END 2021-04-08 02:00 | disposition home or self-care (01) ==
LOC: ERS 23:22
DX: R55 Syncope and collapse (principal); S01.511A Laceration without foreign body of lip, initial encounter; I95.1 Orthostatic hypotension; W22.8XXA Striking against or struck by other objects, initial encounter
CPT/HCPCS: 36415; 70450; 71045; 71275; 80053; 81003; 83690; 84484; 85025; 85379; 93005; 94760; Q9967

== ENCOUNTER 2021-08-02 22:34 | Emergency (ER) | payer BC, MEDICARE ==
[2021-08-02] MEDS ORDERED: Clindamycin/D5W 600 mg/50 ml Premix Bag ONE (23:44)
[2021-08-02] MEDS ORDERED: Morphine 4 MG/ML VIAL ONE (23:44)
[2021-08-02] MEDS ORDERED: Ondansetron PF 4 MG/2 ML Vial ONE (23:44)
[2021-08-03 00:32] LABS: #Basophils 0.1 thou/uL (0.0-0.2); #Monocytes 0.7 thou/uL (0.11-0.59); #Neutrophils 8.1 thou/uL (1.40-6.50); %Basophils 0.6 % (0.0-1.0); %Eosinophils 0.1 % (0.0-10.0); %Lymphocytes 9.8 % (21.0-51.0); %Monocytes 7.4 % (0.0-10.0); %Neutrophils 82.1 % (42.0-75.0); Hemoglobin 13.6 g/dL (12.0-16.0); Mean Corpuscular HGB CONC 34.8 g/dL (32.0-36.0); Mean Platelet Volume 6.6 fL (7.4-10.4); Platelet Count 199 thou/uL (130-400); RBC Distribution Width 12.2 % (11.5-14.5); Red Blood Cell (RBC) Count 3.88 mill/uL (4.20-5.40); White Blood Cell (WBC) Count 9.9 thou/uL (4.8-10.8)
[2021-08-03 00:52] LABS: ALT (SGPT) 24 U/L (8-55); AST (SGOT) 38 U/L (5-34); Alkaline Phosphatase 45 U/L (40-110); Anion Gap 19 mmol/L (10-20); BUN (Urea Nitrogen) 9 mg/dL (9.8-20.1); Bilirubin, Total 0.7 mg/dL (0.2-1.2); Calc. Creatinine Clearance 0 mL/min (70-130); Calcium 8.8 mg/dL (7.8-10.44); Carbon Dioxide 17 mmol/L (23-31); Chloride 100 mmol/L (98-107); Globulin 3.3 g/dL (2.4-3.5); Glucose 106 mg/dL (83-110); Potassium 4.2 mmol/L (3.5-5.1); Protein, Total 7.3 g/dL (5.8-8.1); Sodium 132 mmol/L (136-145)
== END 2021-08-03 01:12 | disposition home or self-care (01) ==
LOC: ERS 22:34
DX: L03.113 Cellulitis of right upper limb (principal); W55.01XA Bitten by cat, initial encounter
CPT/HCPCS: 80053; 85025; 85652; 86140; 96365; 96375; J2270; J2405; J3490

== ENCOUNTER 2021-09-23 08:56 | Outpatient (CLI) | payer BC, MEDICARE | END 2021-09-23 08:57 | disposition home or self-care (01) | LOC: BICMAMMO 08:56 | PROVIDERS: ATTEND Internal Medicine Rheumatology | DX: M81.0 Age-related osteoporosis without current pathological fracture (principal); M85.89 Other specified disorders of bone density and structure, multiple sites; Z79.899 Other long term (current) drug therapy | CPT/HCPCS: 77080 ==

== ENCOUNTER 2022-04-16 14:42 | Outpatient (CLI) | payer BC, MEDICARE ==
[2022-04-16 15:13] LABS: #Basophils 0.1 10x3/uL (0.0-0.2); #Eosinphils 0.1 10x3/uL (0.0-0.5); #Monocytes 0.6 10x3/uL (0.0-1.1); #Neutrophils 3.9 10x3/uL (1.5-8.4); %Eosinophils 1.1 % (0.0-6.0); %Lymphocytes 26.1 % (18.0-47.0); %Monocytes 9.6 % (0.0-10.0); %Neutrophils 60.9 % (40.0-75.0); Hemoglobin 13.7 g/dL (12.0-15.5); Mean Corpuscular HGB CONC 34.9 g/dL (32.0-36.0); Mean Corpuscular Hemoglobin 34.3 pg (27.0-33.0); Mean Corpuscular Volume 98.5 fl (81.6-98.3); Mean Platelet Volume 8.5 fl (7.4-10.4); Platelet Count 274 10x3/uL (150-450); RBC Distribution Width 12.5 % (11.5-14.5); Red Blood Cell (RBC) Count 3.99 10x6/uL (3.90-5.03); White Blood Cell (WBC) Count 6.4 10x3/uL (3.5-10.5)
[2022-04-16 15:44] LABS: ALT (SGPT) 38 U/L (8-55); AST (SGOT) 49 U/L (5-34); Albumin 4.6 g/dL (3.4-4.8); Alkaline Phosphatase 52 U/L (40-110); Anion Gap 17 mmol/L (10-20); BUN (Urea Nitrogen) 5 mg/dL (9.8-20.1); Bilirubin, Total 0.3 mg/dL (0.2-1.2); Calc. Creatinine Clearance 0 mL/min (70-130); Calcium 9.9 mg/dL (7.8-10.44); Carbon Dioxide 24 mmol/L (23-31); Chloride 101 mmol/L (98-107); Globulin 2.6 g/dL (2.4-3.5); Glucose 87 mg/dL (83-110); Potassium 4.3 mmol/L (3.5-5.1); Protein, Total 7.2 g/dL (5.8-8.1); Sodium 138 mmol/L (136-145)
[2022-04-17 00:18] LABS: SARS-CoV-2 PCR by NAA Not Detected (NotDetected)
== END 2022-04-16 14:43 | disposition home or self-care (01) ==
LOC: LABBT 14:42
PROVIDERS: ATTEND Psychiatry & Neurology Psychiatry
DX: Z01.818 Encounter for other preprocedural examination (principal); Z20.822 Contact with and (suspected) exposure to COVID-19
CPT/HCPCS: 80053; 85025; U0003; U0005

== ENCOUNTER 2022-04-21 06:04 | Day surgery (SDC) | payer BC, MEDICARE ==
[2022-04-16 12:34] VITALS: BMI 21.9
[2022-04-21] MEDS ORDERED: Midazolam HCl 2 mg/2 ml Vial ONE (07:10)
[2022-04-21] MEDS ORDERED: Fentanyl 100 MCG/2 ML VIAL ONE (07:10)
[2022-04-21] MEDS ORDERED: Heparin 10,000 UNITS/ 10 ML VIAL ONE (08:15)
[2022-04-21] MEDS ORDERED: Protamine Sulfate 50 MG/5 ML VIAL ONE (08:35)
[2022-04-21] MEDS ORDERED: Iopamidol 370 76% 100 ML VIAL ONE (09:18)
== END 2022-04-21 13:54 | disposition home or self-care (01) ==
LOC: CCL 06:04
PROVIDERS: ATTEND Internal Medicine Cardiovascular Disease
PROC: 4A023N7 Measurement of Cardiac Sampling and Pressure, Left Heart, Percutaneous Approach (ICD-10-PCS; principal; 2022-04-21)
PROC: B2111ZZ Fluoroscopy of Multiple Coronary Arteries using Low Osmolar Contrast (ICD-10-PCS; principal; 2022-04-21)
DX: I35.9 Nonrheumatic aortic valve disorder, unspecified (principal); I25.10 Atherosclerotic heart disease of native coronary artery without angina pectoris; I25.82 Chronic total occlusion of coronary artery; I10 Essential (primary) hypertension; I47.1 Supraventricular tachycardia; M81.0 Age-related osteoporosis without current pathological fracture; E78.5 Hyperlipidemia, unspecified; Z87.891 Personal history of nicotine dependence; Z79.82 Long term (current) use of aspirin; Z79.899 Other long term (current) drug therapy; Z88.0 Allergy status to penicillin; Z88.1 Allergy status to other antibiotic agents; Z95.1 Presence of aortocoronary bypass graft
CPT/HCPCS: 85347; 93005; 93010; 93461; 93561; 93571; 99152; 99153; C1769; J0153; J1644; J2250; J2720; J3010; Q9967

== ENCOUNTER 2022-06-07 22:10 | Emergency (ER) | payer BC, MEDICARE | END 2022-06-08 01:07 | disposition home or self-care (01) | LOC: ERS 22:10 | DX: L76.32 Postprocedural hematoma of skin and subcutaneous tissue following other procedure (principal) | CPT/HCPCS: 76936; 99283 ==

== ENCOUNTER 2022-07-06 08:37 | Outpatient (CLI) | payer BC, MEDICARE | END 2022-07-06 08:38 | disposition home or self-care (01) | LOC: BICMAMMO 08:37 | PROVIDERS: ATTEND Internal Medicine | DX: Z12.31 Encounter for screening mammogram for malignant neoplasm of breast (principal); Z98.890 Other specified postprocedural states; Z95.818 Presence of other cardiac implants and grafts; Z85.3 Personal history of malignant neoplasm of breast | CPT/HCPCS: 77063; 77067 ==

== ENCOUNTER 2022-07-18 20:43 | Emergency (ER) | payer BC, MEDICARE ==
[2022-07-18 22:07] LABS: #Basophils 0.1 thou/uL (0.0-0.2); #Eosinphils 0.2 thou/uL (0.0-0.7); #Lymphocytes 1.2 thou/uL (1.20-3.40); #Monocytes 0.5 thou/uL (0.11-0.59); #Neutrophils 3.1 thou/uL (1.40-6.50); %Basophils 1.6 % (0.0-1.0); %Eosinophils 4.7 % (0.0-10.0); %Lymphocytes 22.7 % (21.0-51.0); %Monocytes 9.8 % (0.0-10.0); %Neutrophils 61.2 % (42.0-75.0); Hemoglobin 11.4 g/dL (12.0-16.0); Mean Corpuscular HGB CONC 35.5 g/dL (32.0-36.0); Mean Corpuscular Hemoglobin 35.9 pg (27.0-31.0); Mean Platelet Volume 6.5 fL (7.4-10.4); Platelet Count 250 thou/uL (130-400); RBC Distribution Width 11.3 % (11.5-14.5); Red Blood Cell (RBC) Count 3.17 mill/uL (4.20-5.40); White Blood Cell (WBC) Count 5.1 thou/uL (4.8-10.8)
[2022-07-18 22:31] LABS: ALT (SGPT) 29 U/L (8-55); AST (SGOT) 26 U/L (5-34); Albumin 3.9 g/dL (3.4-4.8); Alkaline Phosphatase 51 U/L (40-110); Anion Gap 18 mmol/L (10-20); BUN (Urea Nitrogen) 9 mg/dL (9.8-20.1); Bilirubin, Total 0.2 mg/dL (0.2-1.2); Calc. Creatinine Clearance 0 mL/min (70-130); Calcium 9.5 mg/dL (7.8-10.44); Carbon Dioxide 23 mmol/L (23-31); Chloride 102 mmol/L (98-107); Estimated GFR 91; Globulin 2.8 g/dL (2.4-3.5); Glucose 88 mg/dL (83-110); Protein, Total 6.7 g/dL (5.8-8.1); Sodium 139 mmol/L (136-145)
[2022-07-19 01:06] LABS: Clarity Clear (Clear); Specific Gravity, Urine 1.006 (1.002-1.036)
[2022-07-19 01:07] LABS: Bacteria/HPF None Seen HPF (None Seen); Bilirubin Negative (Negative); Blood, Urine Negative (Negative); Glucose, Urine (Dipstick) Normal (Negative); Ketone, Urine Negative (Negative); Leukocyte 75 Leu/uL (Negative); Nitrite Negative (Negative); Protein, Urine (Dipstick) Negative (Neg-Trace); RBC/HPF 0-3 HPF (0-3); Squamous Epithelial None Seen HPF (0-3); Urobilinogen Normal mg/dL (Less than 2); WBC/HPF 0-3 HPF (0-3)
== END 2022-07-19 01:06 | disposition home or self-care (01) ==
LOC: ERS 20:43
DX: R19.7 Diarrhea, unspecified (principal)
CPT/HCPCS: 36415; 80053; 81003; 81015; 85025; 87086; 99284

== ENCOUNTER 2022-09-25 10:03 | Outpatient (CLI) | payer MEDICARE, BC | END 2022-09-25 10:04 | disposition home or self-care (01) | LOC: BICMAMMO 10:03 | PROVIDERS: ATTEND Internal Medicine Rheumatology | DX: M81.0 Age-related osteoporosis without current pathological fracture (principal); E55.9 Vitamin D deficiency, unspecified; M41.50 Other secondary scoliosis, site unspecified; M85.89 Other specified disorders of bone density and structure, multiple sites; M85.852 Other specified disorders of bone density and structure, left thigh; Z79.899 Other long term (current) drug therapy; Z85.3 Personal history of malignant neoplasm of breast | CPT/HCPCS: 77080 ==

== ENCOUNTER 2023-03-04 13:35 | Outpatient (CLI) | payer MEDICARE, BC | END 2023-03-04 13:36 | disposition home or self-care (01) | LOC: MRI 13:35 | PROVIDERS: ATTEND Family Medicine | DX: S32.030A Wedge compression fracture of third lumbar vertebra, initial encounter for closed fracture (principal); S32.010A Wedge compression fracture of first lumbar vertebra, initial encounter for closed fracture; S22.080A Wedge compression fracture of T11-T12 vertebra, initial encounter for closed fracture; M43.8X6 Other specified deforming dorsopathies, lumbar region; M48.061 Spinal stenosis, lumbar region without neurogenic claudication | CPT/HCPCS: 72146; 72148 ==

== ENCOUNTER 2023-03-05 19:27 | Inpatient (IN) | payer MEDICARE, BC ==
[~2023-03-05 19:27] MED LIST: Iopamidol-370 76% 500 ML MDV (1 ML CHARGE) ONE
[2023-03-05] MEDS ORDERED: LORazepam 2 MG/ML SYR.(CARPUJECT) ONE (19:55)
[2023-03-05] MEDS ORDERED: CEFAZOLIN 2 GM VIAL ONE (20:15)
[2023-03-05] MEDS ORDERED: Ondansetron PF 4 MG/2 ML Vial ONE (20:15)
[2023-03-05] MEDS ORDERED: Morphine 4 MG/ML VIAL ONE (20:16)
[2023-03-05 20:18] LABS: PTT 26.1 sec (22.9-36.1); Prothrombin Time 13.1 sec (12.0-14.7)
[2023-03-05 20:19] LABS: #Monocytes 0.8 thou/uL (0.11-0.59); #Neutrophils 7.2 thou/uL (1.40-6.50); %Basophils 0.5 % (0.0-1.0); %Eosinophils 0.4 % (0.0-10.0); %Lymphocytes 11.3 % (21.0-51.0); %Monocytes 8.9 % (0.0-10.0); %Neutrophils 78.9 % (42.0-75.0); Hemoglobin 12.5 g/dL (12.0-16.0); Mean Corpuscular HGB CONC 34.3 g/dL (32.0-36.0); Mean Corpuscular Hemoglobin 34.1 pg (27.0-31.0); Mean Corpuscular Volume 99.4 fl (78.0-98.0); Mean Platelet Volume 6.6 fL (7.4-10.4); Platelet Count 232 10x3/uL (130-400); RBC Distribution Width 11.6 % (11.5-14.5); Red Blood Cell (RBC) Count 3.68 mill/uL (4.20-5.40); White Blood Cell (WBC) Count 9.1 10x3/uL (4.8-10.8)
[2023-03-05] MEDS ORDERED: HumaLOG 300 UNITS/3 ML VIAL SC PRN (20:24)
[2023-03-05] MEDS ORDERED: Acetaminophen 325 MG TAB PO PRN (20:24)
[2023-03-05] MEDS ORDERED: Dextrose 5% in Water 1,000 ML IV PRN (20:24)
[2023-03-05] MEDS ORDERED: Dextrose 50% Abboject 50 ML SYRINGE SLOW IVP PRN (20:24)
[2023-03-05] MEDS ORDERED: Ipratropium/Albuterol 3 ML NEB NEB PRN (20:24)
[2023-03-05 20:27] LABS: ALT (SGPT) 20 U/L (8-55); AST (SGOT) 29 U/L (5-34); Albumin 4.3 g/dL (3.4-4.8); Alcohol 68 mg/dL (Less than 10); Alkaline Phosphatase 78 U/L (40-110); Anion Gap 20 mmol/L (10-20); BUN (Urea Nitrogen) 11 mg/dL (9.8-20.1); Bilirubin, Total 0.5 mg/dL (0.2-1.2); Calc. Creatinine Clearance 0 mL/min (70-130); Calcium 9.9 mg/dL (7.8-10.44); Carbon Dioxide 19 mmol/L (23-31); Chloride 100 mmol/L (98-107); Estimated GFR 90; Globulin 2.9 g/dL (2.4-3.5); Glucose 101 mg/dL (83-110); Potassium 3.4 mmol/L (3.5-5.1); Protein, Total 7.2 g/dL (5.8-8.1); Sodium 136 mmol/L (136-145)
[2023-03-05] MEDS ORDERED: Sodium Chloride 0.9% 1,000 ML IV SCH (20:30)
[2023-03-05] MEDS ORDERED: Acetaminophen/Codeine 30-300mg Tablet PO PRN (20:30)
[2023-03-05] MEDS ORDERED: levETIRAcetam 500 MG/5 ML VIAL ONE (20:42)
[2023-03-05] MEDS ORDERED: Potassium Chloride 20 MEQ in Premix Bag 1 BAG IVPB SCH (21:00)
[2023-03-05 21:40] LABS: Glucose 142 mg/dL (83-110)
[2023-03-05] MEDS: hydrALAZINE 20 MG/ML VIAL SLOW IVP PRN (23:04)
[2023-03-05] MEDS: Morphine 2 MG/ML VIAL SLOW IVP PRN (23:37)
[2023-03-06] MEDS: Senokot S 8.6-50 MG TAB PO SCH ×2 (01:22→10:12)
[2023-03-06] MEDS: Labetalol HCl 100 MG/20 ML VIAL SLOW IVP PRN ×7 (02:02→22:05)
[2023-03-06] MEDS: Morphine 2 MG/ML VIAL SLOW IVP PRN ×3 (02:39→15:41)
[2023-03-06 04:05] LABS: #Lymphocytes 0.3 thou/uL (1.20-3.40); #Monocytes 1.1 thou/uL (0.11-0.59); #Neutrophils 9.7 thou/uL (1.40-6.50); %Eosinophils 0.1 % (0.0-10.0); %Lymphocytes 2.8 % (21.0-51.0); %Monocytes 10.3 % (0.0-10.0); %Neutrophils 86.9 % (42.0-75.0); Hemoglobin 11.8 g/dL (12.0-16.0); Mean Corpuscular HGB CONC 34.5 g/dL (32.0-36.0); Mean Corpuscular Hemoglobin 34.6 pg (27.0-31.0); Mean Platelet Volume 6.7 fL (7.4-10.4); Platelet Count 166 10x3/uL (130-400); RBC Distribution Width 11.6 % (11.5-14.5); Red Blood Cell (RBC) Count 3.42 mill/uL (4.20-5.40); White Blood Cell (WBC) Count 11.1 10x3/uL (4.8-10.8)
[2023-03-06 04:29] LABS: Anion Gap 18 mmol/L (10-20); BUN (Urea Nitrogen) 11 mg/dL (9.8-20.1); Calc. Creatinine Clearance 55 mL/min (70-130); Calcium 9.5 mg/dL (7.8-10.44); Carbon Dioxide 19 mmol/L (23-31); Chloride 101 mmol/L (98-107); Estimated GFR 87; Glucose 136 mg/dL (83-110); Potassium 3.9 mmol/L (3.5-5.1); Sodium 134 mmol/L (136-145)
[2023-03-06] MEDS: hydrALAZINE 20 MG/ML VIAL SLOW IVP PRN (04:36)
[2023-03-06 08:23] LABS: Glucose 133 mg/dL (83-110)
[2023-03-06 08:30] LABS: PTT 26.8 sec (22.9-36.1); Prothrombin Time 13.3 sec (12.0-14.7)
[2023-03-06] MEDS ORDERED: levETIRAcetam 500 MG TAB PO SCH (09:00)
[2023-03-06] MEDS: Polyethylene Glycol 3350 17 GM Packet PO SCH (10:12)
[2023-03-06] MEDS: Ciprofloxacin 0.2% Otic (0.25ML CONTAINER) L EAR SCH ×2 (11:02→22:47)
[2023-03-06 12:08] LABS: Glucose 123 mg/dL (83-110)
[2023-03-06] MEDS ORDERED: levETIRAcetam 500 MG/5 ML VIAL SLOW IVP SCH (13:15)
[2023-03-06] MEDS ORDERED: Lorazepam 2 MG/ML VIAL SLOW IVP PRN (13:15)
[2023-03-06] MEDS: levETIRAcetam 500 MG/5 ML VIAL SLOW IVP SCH ×2 (13:29→20:40)
[2023-03-06 14:19] LABS: Bacteria/HPF None Seen HPF (None Seen); Bilirubin Negative (Negative); Blood, Urine Negative (Negative); CAUTI Indications for Culture Alt mental st,lethar; Clarity Clear (Clear); Glucose, Urine (Dipstick) Normal (Negative); Ketone, Urine 10 mg/dL (Negative); Leukocyte Negative Leu/uL (Negative); Mucous/LPF Rare LPF (<2+); Nitrite Negative (Negative); Protein, Urine (Dipstick) 20 mg/dL (Neg-Trace); RBC/HPF 0-3 HPF (0-3); Specific Gravity, Urine 1.024 (1.002-1.036); Squamous Epithelial 0-3 HPF (0-3); Urobilinogen Normal mg/dL (Less than 2); WBC/HPF 0-3 HPF (0-3)
[2023-03-06 14:21] LABS: Urine Culture Reflex No No
[2023-03-06] MEDS: Sodium Chloride 0.9% 1,000 ML IV SCH (14:49)
[2023-03-06 17:07] LABS: Actual Bicarbonate (HCO3a) 22.3 mEq/L (22-28); Base Excess (BEa) -0.4 mEq/L (-2.0 to +3.0); CO2 Tension 29.6 mmHg (35.0-45.0); Calcium, Ionized (arterial) 1.16 mmol/L (1.12-1.30); Carboxyhemoglobin (COHb) 1.3 gm% (0.0-3.0); Hemoglobin (Hb) 10.1 g/dL (12.0-16.0); Potassium - ABG Lab 3.47 mmol/L (3.70-5.30); pH, Arterial 7.49 (7.35-7.45)
[2023-03-06 17:09] LABS: Puncture Site LRA
[2023-03-06] MEDS ORDERED: Scopolamine 1.5 mg/72 hour Patch TD SCH (18:30)
[2023-03-06] MEDS ORDERED: Morphine 2 MG/ML VIAL SLOW IVP PRN ×2 (18:58→20:50)
[2023-03-06] MEDS: Acetaminophen 650 MG Suppository PR SCH ×2 (19:46→23:36)
[2023-03-06] MEDS: Pantoprazole 40 MG VIAL IVP SCH (20:40)
[2023-03-06] MEDS ORDERED: Famotidine/PF 20 mg/2ml Vial SLOW IVP SCH (21:00)
[2023-03-06] MEDS: Acetaminophen 650 MG/20.3 ML UDCUP PO SCH (23:39)
[2023-03-07 04:02] LABS: #Lymphocytes 0.6 thou/uL (1.20-3.40); #Monocytes 0.9 thou/uL (0.11-0.59); #Neutrophils 7.4 thou/uL (1.40-6.50); %Basophils 0.3 % (0.0-1.0); %Eosinophils 0.1 % (0.0-10.0); %Monocytes 10.3 % (0.0-10.0); %Neutrophils 82.3 % (42.0-75.0); Hemoglobin 9.9 g/dL (12.0-16.0); Mean Corpuscular HGB CONC 37.5 g/dL (32.0-36.0); Mean Corpuscular Hemoglobin 37.7 pg (27.0-31.0); Mean Platelet Volume 7.4 fL (7.4-10.4); Platelet Count 155 10x3/uL (130-400); RBC Distribution Width 11.6 % (11.5-14.5); Red Blood Cell (RBC) Count 2.61 mill/uL (4.20-5.40)
[2023-03-07] MEDS: Sodium Chloride 0.9% 1,000 ML IV SCH ×2 (04:16→17:22)
[2023-03-07] MEDS: Acetaminophen 650 MG Suppository PR SCH (04:17)
[2023-03-07 04:19] LABS: Anion Gap 15 mmol/L (10-20); BUN (Urea Nitrogen) 11 mg/dL (9.8-20.1); Calc. Creatinine Clearance 65 mL/min (70-130); Carbon Dioxide 20 mmol/L (23-31); Chloride 104 mmol/L (98-107); Estimated GFR 93; Glucose 124 mg/dL (83-110); Magnesium 1.5 mg/dL (1.6-2.6); Phosphorus 2.7 mg/dL (2.3-4.7); Potassium 3.5 mmol/L (3.5-5.1); Sodium 135 mmol/L (136-145)
[2023-03-07] MEDS: Acetaminophen 650 MG/20.3 ML UDCUP PO SCH ×4 (05:49→23:33)
[2023-03-07] MEDS: levETIRAcetam 500 MG/5 ML VIAL SLOW IVP SCH ×2 (07:46→20:02)
[2023-03-07] MEDS: Polyethylene Glycol 3350 17 GM Packet PO SCH (07:46)
[2023-03-07] MEDS: Pantoprazole 40 MG VIAL IVP SCH ×2 (07:47→20:02)
[2023-03-07] MEDS: Ciprofloxacin 0.2% Otic (0.25ML CONTAINER) L EAR SCH ×2 (07:48→20:51)
[2023-03-07] MEDS ORDERED: Magnesium Sulfate In Water 4 GM in Premix Bag 1 BAG IVPB SCH (08:00)
[2023-03-07] MEDS: Labetalol HCl 100 MG/20 ML VIAL SLOW IVP PRN ×3 (11:38→23:34)
[2023-03-07] MEDS: Morphine 2 MG/ML VIAL SLOW IVP PRN (11:50)
[2023-03-07] MEDS: Acetaminophen W/ Codeine 5 ML UDCUP PO PRN (14:32)
[2023-03-07] MEDS: Ondansetron PF 4 MG/2 ML Vial IVP PRN (17:20)
[2023-03-08] MEDS: Acetaminophen 650 MG/20.3 ML UDCUP PO SCH ×4 (05:23→23:09)
[2023-03-08] MEDS: Sodium Chloride 0.9% 1,000 ML IV SCH ×3 (05:25→23:30)
[2023-03-08] MEDS: Labetalol HCl 100 MG/20 ML VIAL SLOW IVP PRN ×3 (05:49→17:38)
[2023-03-08 06:18] LABS: #Lymphocytes 0.5 thou/uL (1.20-3.40); #Monocytes 0.7 thou/uL (0.11-0.59); #Neutrophils 6.9 thou/uL (1.40-6.50); %Basophils 0.4 % (0.0-1.0); %Eosinophils 0.2 % (0.0-10.0); %Lymphocytes 6.6 % (21.0-51.0); %Monocytes 8.1 % (0.0-10.0); %Neutrophils 84.8 % (42.0-75.0); Hemoglobin 8.5 g/dL (12.0-16.0); Mean Corpuscular HGB CONC 34.6 g/dL (32.0-36.0); Mean Corpuscular Hemoglobin 34.7 pg (27.0-31.0); Mean Platelet Volume 7.3 fL (7.4-10.4); Platelet Count 137 10x3/uL (130-400); RBC Distribution Width 11.4 % (11.5-14.5); Red Blood Cell (RBC) Count 2.46 mill/uL (4.20-5.40); White Blood Cell (WBC) Count 8.2 10x3/uL (4.8-10.8)
[2023-03-08 06:35] LABS: Glucose 128 mg/dL (83-110)
[2023-03-08 06:48] LABS: Anion Gap 12 mmol/L (10-20); BUN (Urea Nitrogen) 12 mg/dL (9.8-20.1); Calc. Creatinine Clearance 66 mL/min (70-130); Calcium 8.9 mg/dL (7.8-10.44); Carbon Dioxide 20 mmol/L (23-31); Chloride 107 mmol/L (98-107); Estimated GFR 93; Glucose 130 mg/dL (83-110); Magnesium 1.9 mg/dL (1.6-2.6); Phosphorus 1.6 mg/dL (2.3-4.7); Potassium 3.3 mmol/L (3.5-5.1); Sodium 136 mmol/L (136-145)
[2023-03-08] MEDS: levETIRAcetam 500 MG/5 ML VIAL SLOW IVP SCH ×2 (08:03→21:28)
[2023-03-08] MEDS: Acetaminophen W/ Codeine 5 ML UDCUP PO PRN ×2 (08:03→18:26)
[2023-03-08] MEDS: Pantoprazole 40 MG VIAL IVP SCH ×2 (08:03→08:25)
[2023-03-08] MEDS: Polyethylene Glycol 3350 17 GM Packet PO SCH (08:04)
[2023-03-08] MEDS: Ciprofloxacin 0.2% Otic (0.25ML CONTAINER) L EAR SCH ×2 (08:15→22:31)
[2023-03-08] MEDS ORDERED: Potassium Phosphate 40 MMOL in Sodium Chloride 0.9% 250 ML 250 ML IVPB SCH (08:15)
[2023-03-08 12:31] LABS: Glucose 121 mg/dL (83-110)
[2023-03-08] MEDS: Morphine 2 MG/ML VIAL SLOW IVP PRN ×2 (12:47→23:11)
[2023-03-08] MEDS: hydrALAZINE 20 MG/ML VIAL SLOW IVP PRN ×2 (18:25→23:13)
[2023-03-08] MEDS ORDERED: Amlodipine 5 MG TAB PO SCH (21:00)
[2023-03-08] MEDS: Metoprolol Tartrate 25 MG TAB PER TUBE SCH (21:28)
[2023-03-09] MEDS: Morphine 2 MG/ML VIAL SLOW IVP PRN ×5 (04:20→21:56)
[2023-03-09] MEDS: Acetaminophen 650 MG/20.3 ML UDCUP PO SCH ×3 (05:33→17:33)
[2023-03-09] MEDS: hydrALAZINE 20 MG/ML VIAL SLOW IVP PRN ×2 (08:09→15:39)
[2023-03-09] MEDS: levETIRAcetam 500 MG/5 ML VIAL SLOW IVP SCH ×2 (08:11→21:47)
[2023-03-09] MEDS: Polyethylene Glycol 3350 17 GM Packet PO SCH (08:12)
[2023-03-09] MEDS: Metoprolol Tartrate 25 MG TAB PER TUBE SCH ×2 (08:12→21:47)
[2023-03-09] MEDS: Pantoprazole 40 MG VIAL IVP SCH (08:13)
[2023-03-09] MEDS: Labetalol HCl 100 MG/20 ML VIAL SLOW IVP PRN ×3 (09:14→17:33)
[2023-03-09] MEDS: Senokot S 8.6-50 MG TAB PO SCH ×2 (09:18→21:47)
[2023-03-09] MEDS: Ciprofloxacin 0.2% Otic (0.25ML CONTAINER) L EAR SCH ×2 (11:24→21:48)
[2023-03-09] MEDS: Acetaminophen W/ Codeine 5 ML UDCUP PO PRN (11:29)
[2023-03-09] MEDS: Ondansetron PF 4 MG/2 ML Vial IVP PRN (15:39)
[2023-03-09] MEDS ORDERED: Amlodipine 5 MG TAB PO SCH (16:00)
[2023-03-10] MEDS: Sodium Chloride 0.9% 1,000 ML IV SCH (00:01)
[2023-03-10] MEDS: hydrALAZINE 20 MG/ML VIAL SLOW IVP PRN ×3 (04:19→23:25)
[2023-03-10] MEDS: Acetaminophen W/ Codeine 5 ML UDCUP PO PRN (04:19)
[2023-03-10] MEDS ORDERED: Morphine 4 MG/ML VIAL SLOW IVP SCH (05:45)
[2023-03-10] MEDS: Acetaminophen 650 MG/20.3 ML UDCUP PO SCH ×2 (05:53)
[2023-03-10 05:58] LABS: #Lymphocytes 0.4 thou/uL (1.20-3.40); #Monocytes 0.9 thou/uL (0.11-0.59); #Neutrophils 7.1 thou/uL (1.40-6.50); %Basophils 0.3 % (0.0-1.0); %Eosinophils 0.3 % (0.0-10.0); %Lymphocytes 5.2 % (21.0-51.0); %Monocytes 10.7 % (0.0-10.0); %Neutrophils 83.5 % (42.0-75.0); Hemoglobin 9.3 g/dL (12.0-16.0); Mean Corpuscular HGB CONC 34.8 g/dL (32.0-36.0); Mean Corpuscular Hemoglobin 35.4 pg (27.0-31.0); Mean Platelet Volume 7.2 fL (7.4-10.4); Platelet Count 189 10x3/uL (130-400); RBC Distribution Width 12.1 % (11.5-14.5); Red Blood Cell (RBC) Count 2.63 mill/uL (4.20-5.40); White Blood Cell (WBC) Count 8.5 10x3/uL (4.8-10.8)
[2023-03-10 06:18] LABS: Anion Gap 14 mmol/L (10-20); BUN (Urea Nitrogen) 17 mg/dL (9.8-20.1); Calc. Creatinine Clearance 85 mL/min (70-130); Calcium 9.1 mg/dL (7.8-10.44); Carbon Dioxide 21 mmol/L (23-31); Chloride 105 mmol/L (98-107); Estimated GFR 96; Glucose 145 mg/dL (83-110); Magnesium 1.7 mg/dL (1.6-2.6); Phosphorus 2.8 mg/dL (2.3-4.7); Potassium 2.9 mmol/L (3.5-5.1); Sodium 137 mmol/L (136-145)
[2023-03-10] MEDS ORDERED: Acetaminophen/Codeine 30-300mg Tablet PO PRN ×2 (06:39)
[2023-03-10] MEDS ORDERED: MAGNESIUM SULFATE IVPB SCH (09:00)
[2023-03-10] MEDS ORDERED: POTASSIUM PHOSPHATE IVPB SCH (09:00)
[2023-03-10] MEDS ORDERED: [UNRECOGNIZED DRUG - OTHER] IVPB SCH (09:00)
[2023-03-10] MEDS: Polyethylene Glycol 3350 17 GM Packet PO SCH (10:00)
[2023-03-10] MEDS: Metoprolol Tartrate 25 MG TAB PER TUBE SCH ×2 (10:00→21:21)
[2023-03-10] MEDS: levETIRAcetam 500 MG TAB PO SCH ×3 (10:00→22:10)
[2023-03-10] MEDS: Senokot S 8.6-50 MG TAB PO SCH ×2 (10:00→21:21)
[2023-03-10] MEDS: Pantoprazole 40 MG VIAL IVP SCH (10:01)
[2023-03-10] MEDS: Atorvastatin Calcium 40 MG TAB PO SCH (10:01)
[2023-03-10] MEDS: Acetaminophen 325 MG/10.15 ML UDCUP PO SCH ×2 (12:58→16:20)
[2023-03-10] MEDS ORDERED: Labetalol HCl 100 MG/20 ML VIAL ONE (15:58)
[2023-03-10] MEDS: Ciprofloxacin 0.2% Otic (0.25ML CONTAINER) L EAR SCH ×2 (18:22→22:18)
[2023-03-10] MEDS ORDERED: Amlodipine 5 MG TAB PO SCH (21:00)
[2023-03-10] MEDS ORDERED: levETIRAcetam 500 mg/5 ml Oral Solution PO SCH (21:00)
[2023-03-11] MEDS ORDERED: Labetalol HCl 100 MG/20 ML VIAL SLOW IVP SCH (00:15)
[2023-03-11] MEDS: Acetaminophen 325 MG/10.15 ML UDCUP PO SCH ×4 (00:21→21:13)
[2023-03-11] MEDS: Ondansetron PF 4 MG/2 ML Vial IVP PRN (02:47)
[2023-03-11] MEDS ORDERED: Lorazepam 2 MG/ML VIAL SLOW IVP PRN (04:25)
[2023-03-11] MEDS ORDERED: Morphine 4 MG/ML VIAL SLOW IVP SCH (04:30)
[2023-03-11] MEDS ORDERED: levETIRAcetam in NS 1,000 MG in Premix Bag 1 BAG IVPB SCH (04:30)
[2023-03-11] MEDS ORDERED: levETIRAcetam 500 MG/5 ML VIAL SLOW IVP SCH ×4 (04:45→21:00)
[2023-03-11] MEDS: hydrALAZINE 20 MG/ML VIAL SLOW IVP PRN ×2 (04:50→18:12)
[2023-03-11 05:14] LABS: #Lymphocytes 0.4 thou/uL (1.20-3.40); #Monocytes 1.4 thou/uL (0.11-0.59); #Neutrophils 8.8 thou/uL (1.40-6.50); %Basophils 0.1 % (0.0-1.0); %Eosinophils 0.1 % (0.0-10.0); %Lymphocytes 4.1 % (21.0-51.0); %Monocytes 12.9 % (0.0-10.0); %Neutrophils 82.8 % (42.0-75.0); Hemoglobin 9.8 g/dL (12.0-16.0); Mean Corpuscular HGB CONC 34.8 g/dL (32.0-36.0); Mean Corpuscular Hemoglobin 35.2 pg (27.0-31.0); Mean Platelet Volume 6.9 fL (7.4-10.4); Platelet Count 240 10x3/uL (130-400); RBC Distribution Width 11.9 % (11.5-14.5); White Blood Cell (WBC) Count 10.7 10x3/uL (4.8-10.8)
[2023-03-11 05:53] LABS: ALT (SGPT) 14 U/L (8-55); AST (SGOT) 16 U/L (5-34); Albumin 3.8 g/dL (3.4-4.8); Alkaline Phosphatase 62 U/L (40-110); Anion Gap 17 mmol/L (10-20); BUN (Urea Nitrogen) 12 mg/dL (9.8-20.1); Bilirubin, Total 0.8 mg/dL (0.2-1.2); Calc. Creatinine Clearance 87 mL/min (70-130); Calcium 9.4 mg/dL (7.8-10.44); Carbon Dioxide 23 mmol/L (23-31); Chloride 99 mmol/L (98-107); Estimated GFR 97; Globulin 3.2 g/dL (2.4-3.5); Glucose 131 mg/dL (83-110); Phosphorus 3.4 mg/dL (2.3-4.7); Potassium 3.1 mmol/L (3.5-5.1); Sodium 136 mmol/L (136-145)
[2023-03-11] MEDS: Pantoprazole 40 MG VIAL IVP SCH (09:27)
[2023-03-11] MEDS: Polyethylene Glycol 3350 17 GM Packet PO SCH (09:28)
[2023-03-11] MEDS: Senokot S 8.6-50 MG TAB PO SCH ×2 (09:28→20:38)
[2023-03-11] MEDS ORDERED: Lacosamide 200 MG in Sodium Chloride 0.9% 50 ML IVPB SCH (12:45)
[2023-03-11] MEDS: Atorvastatin Calcium 40 MG TAB PO SCH (13:23)
[2023-03-11] MEDS: Metoprolol Tartrate 25 MG TAB PER TUBE SCH ×2 (13:23→20:39)
[2023-03-11] MEDS: Amlodipine 10 MG TAB PO SCH (14:14)
[2023-03-11] MEDS: Ciprofloxacin 0.2% Otic (0.25ML CONTAINER) L EAR SCH ×2 (14:15→21:13)
[2023-03-11] MEDS: Morphine 4 MG/ML VIAL SLOW IVP PRN (20:15)
[2023-03-11] MEDS: levETIRAcetam 500 MG/5 ML VIAL SLOW IVP SCH (20:16)
[2023-03-11] MEDS: Lacosamide 200 MG in Sodium Chloride 0.9% 50 ML IVPB SCH (21:12)
[2023-03-11] MEDS: Acetaminophen 650 MG/20.3 ML UDCUP PO SCH (21:12)
[2023-03-11] MEDS: cloNIDine 0.1 MG TAB PO SCH (23:44)
[2023-03-12] MEDS: hydrALAZINE 20 MG/ML VIAL SLOW IVP PRN (03:31)
[2023-03-12] MEDS: Acetaminophen 650 MG/20.3 ML UDCUP PO SCH ×3 (05:17→18:02)
[2023-03-12] MEDS: cloNIDine 0.1 MG TAB PO SCH ×4 (05:17→21:32)
[2023-03-12 05:42] LABS: #Lymphocytes 0.4 thou/uL (1.20-3.40); #Monocytes 1.3 thou/uL (0.11-0.59); #Neutrophils 7.6 thou/uL (1.40-6.50); %Basophils 0.2 % (0.0-1.0); %Eosinophils 0.3 % (0.0-10.0); %Lymphocytes 4.2 % (21.0-51.0); %Monocytes 13.6 % (0.0-10.0); %Neutrophils 81.8 % (42.0-75.0); Hemoglobin 10.5 g/dL (12.0-16.0); Mean Corpuscular HGB CONC 34.9 g/dL (32.0-36.0); Mean Corpuscular Hemoglobin 35.2 pg (27.0-31.0); Mean Platelet Volume 6.7 fL (7.4-10.4); Platelet Count 332 10x3/uL (130-400); RBC Distribution Width 11.9 % (11.5-14.5); Red Blood Cell (RBC) Count 2.97 mill/uL (4.20-5.40); White Blood Cell (WBC) Count 9.3 10x3/uL (4.8-10.8)
[2023-03-12 06:14] LABS: Anion Gap 18 mmol/L (10-20); BUN (Urea Nitrogen) 13 mg/dL (9.8-20.1); Calc. Creatinine Clearance 93 mL/min (70-130); Calcium 9.6 mg/dL (7.8-10.44); Carbon Dioxide 21 mmol/L (23-31); Chloride 98 mmol/L (98-107); Estimated GFR 98; Glucose 119 mg/dL (83-110); Magnesium 1.6 mg/dL (1.6-2.6); Potassium 2.8 mmol/L (3.5-5.1); Sodium 134 mmol/L (136-145)
[2023-03-12] MEDS ORDERED: Magnesium 2 GM/50 ML(in water) 2 GM in Premix Bag 1 BAG IVPB SCH (09:00)
[2023-03-12] MEDS: Pantoprazole 40 MG VIAL IVP SCH (10:07)
[2023-03-12] MEDS: Potassium Chloride 20 MEQ in Premix Bag 1 BAG IVPB SCH ×4 (10:07→16:26)
[2023-03-12] MEDS: Senokot S 8.6-50 MG TAB PO SCH ×2 (10:07→21:45)
[2023-03-12] MEDS: levETIRAcetam 500 MG/5 ML VIAL SLOW IVP SCH ×2 (10:07→21:45)
[2023-03-12] MEDS: Ciprofloxacin 0.2% Otic (0.25ML CONTAINER) L EAR SCH ×2 (10:08→20:56)
[2023-03-12] MEDS: Polyethylene Glycol 3350 17 GM Packet PO SCH (10:08)
[2023-03-12] MEDS: Amlodipine 10 MG TAB PO SCH (10:08)
[2023-03-12] MEDS: Metoprolol Tartrate 25 MG TAB PER TUBE SCH ×2 (10:08→21:33)
[2023-03-12] MEDS: Lacosamide 200 MG in Sodium Chloride 0.9% 50 ML IVPB SCH ×2 (12:39→21:33)
[2023-03-12] MEDS: Atorvastatin Calcium 40 MG TAB PO SCH (12:46)
[2023-03-13 04:48] LABS: Hemoglobin 10.9 g/dL (12.0-16.0); Mean Corpuscular Hemoglobin 34.8 pg (27.0-31.0); Mean Corpuscular Volume 99.6 fl (78.0-98.0); Mean Platelet Volume 6.5 fL (7.4-10.4); Platelet Count 350 10x3/uL (130-400); RBC Distribution Width 11.8 % (11.5-14.5); Red Blood Cell (RBC) Count 3.12 mill/uL (4.20-5.40); White Blood Cell (WBC) Count 9.8 10x3/uL (4.8-10.8)
[2023-03-13 05:06] LABS: Anion Gap 14 mmol/L (10-20); BUN (Urea Nitrogen) 17 mg/dL (9.8-20.1); Calc. Creatinine Clearance 79 mL/min (70-130); Calcium 9.6 mg/dL (7.8-10.44); Carbon Dioxide 23 mmol/L (23-31); Chloride 98 mmol/L (98-107); Estimated GFR 96; Glucose 117 mg/dL (83-110); Magnesium 2.2 mg/dL (1.6-2.6); Phosphorus 3.5 mg/dL (2.3-4.7); Potassium 3.4 mmol/L (3.5-5.1); Sodium 132 mmol/L (136-145)
[2023-03-13 05:13] LABS: Eosinophils 1 % (0-10); Lymphocytes 10 % (21-51); MDiff Complete? YES; Macrocytosis SLIGHT = 6-15 cells (100X) (0-5/hpf); Monocytes 10 % (0-10); Neutrophil 79 % (42-75); Platelet Morphology Comment Appears Adequate; Polychromasia SLIGHT = 2-3 cells (100X) (0-2/hpf)
[2023-03-13] MEDS: Acetaminophen 650 MG/20.3 ML UDCUP PO SCH ×4 (06:26→16:38)
[2023-03-13] MEDS: cloNIDine 0.1 MG TAB PO SCH (06:27)
[2023-03-13] MEDS ORDERED: cloNIDine 0.1 MG TAB PO SCH ×2 (07:21→07:25)
[2023-03-13] MEDS ORDERED: Metoprolol Tartrate 25 MG TAB PER TUBE SCH (07:24)
[2023-03-13] MEDS: Amlodipine 10 MG TAB PO SCH (08:08)
[2023-03-13] MEDS: cloNIDine 0.2 MG TAB PO SCH ×3 (08:09→22:17)
[2023-03-13] MEDS: Polyethylene Glycol 3350 17 GM Packet PO SCH (08:09)
[2023-03-13] MEDS: Metoprolol Tartrate 50 MG TAB PER TUBE SCH ×2 (08:09→22:17)
[2023-03-13] MEDS: levETIRAcetam 500 MG/5 ML VIAL SLOW IVP SCH ×2 (08:12→22:07)
[2023-03-13] MEDS: Pantoprazole 40 MG VIAL IVP SCH (08:12)
[2023-03-13] MEDS ORDERED: Phenylephrine 10 MG/ML VIAL ONE (09:02)
[2023-03-13] MEDS: Ciprofloxacin 0.2% Otic (0.25ML CONTAINER) L EAR SCH (09:27)
[2023-03-13] MEDS: Lacosamide 200 MG in Sodium Chloride 0.9% 50 ML IVPB SCH ×2 (09:28→22:07)
[2023-03-13] MEDS: Senokot S 8.6-50 MG TAB PO SCH ×2 (09:54→22:18)
[2023-03-13] MEDS: Atorvastatin Calcium 40 MG TAB PO SCH (13:15)
[2023-03-13] MEDS: Morphine 4 MG/ML VIAL SLOW IVP PRN ×2 (13:28→20:47)
[2023-03-14] MEDS: Acetaminophen 650 MG/20.3 ML UDCUP PO SCH ×3 (00:33→12:29)
[2023-03-14] MEDS: cloNIDine 0.2 MG TAB PO SCH ×2 (03:52→08:54)
[2023-03-14] MEDS: Morphine 4 MG/ML VIAL SLOW IVP PRN ×4 (06:04→22:23)
[2023-03-14] MEDS: levETIRAcetam 500 MG/5 ML VIAL SLOW IVP SCH (08:53)
[2023-03-14] MEDS: Amlodipine 10 MG TAB PO SCH (08:54)
[2023-03-14] MEDS: Senokot S 8.6-50 MG TAB PO SCH (08:54)
[2023-03-14] MEDS: Metoprolol Tartrate 50 MG TAB PER TUBE SCH (08:54)
[2023-03-14] MEDS: Polyethylene Glycol 3350 17 GM Packet PO SCH (08:54)
[2023-03-14] MEDS: Lacosamide 200 MG in Sodium Chloride 0.9% 50 ML IVPB SCH (09:54)
[2023-03-14] MEDS: Pantoprazole 40 MG VIAL IVP SCH (10:00)
[2023-03-14] MEDS: hydrALAZINE 20 MG/ML VIAL SLOW IVP PRN (10:01)
[2023-03-14] MEDS: Atorvastatin Calcium 40 MG TAB PO SCH (12:29)
[2023-03-15] MEDS: Morphine 4 MG/ML VIAL SLOW IVP PRN ×6 (06:02→20:23)
[2023-03-15 14:49] VITALS: BMI 18.9
[2023-03-16] MEDS: Morphine 4 MG/ML VIAL SLOW IVP PRN ×3 (02:41→21:21)
[2023-03-16] MEDS ORDERED: Furosemide 40 MG/4 ML VIAL SLOW IVP SCH (09:30)
[2023-03-16] MEDS: Acetaminophen 650 MG/20.3 ML UDCUP PO PRN ×2 (11:42→17:02)
[2023-03-17] MEDS: Acetaminophen 650 MG/20.3 ML UDCUP PO PRN ×2 (11:06→17:41)
[2023-03-17] MEDS ORDERED: Sodium Chloride 0.9% 1,000 ML IV SCH (12:00)
[2023-03-18] MEDS: Acetaminophen 650 MG/20.3 ML UDCUP PO PRN ×2 (10:29→16:39)
[2023-03-18 18:12] VITALS: BP 164/82; TEMP 98.9
== END 2023-03-18 19:25 | DRG 85 ==
LOC: ERS 19:27 → CCU 20:29 → SJJU 03-09 18:27 → IMCU/EMU 03-11 18:01 → SJJU 03-14 09:37
PROVIDERS: ADMIT Surgery; ATTEND Surgery
DX: S06.6X1A Traumatic subarachnoid hemorrhage with loss of consciousness of 30 minutes or less, initial encounter (principal); G93.5 Compression of brain; S22.089A Unspecified fracture of T11-T12 vertebra, initial encounter for closed fracture; S09.21XA Traumatic rupture of right ear drum, initial encounter; Z66 Do not resuscitate; S02.19XA Other fracture of base of skull, initial encounter for closed fracture; Z51.5 Encounter for palliative care; W10.9XXA Fall (on) (from) unspecified stairs and steps, initial encounter; S06.5X1A Traumatic subdural hemorrhage with loss of consciousness of 30 minutes or less, initial encounter; R40.2362 Coma scale, best motor response, obeys commands, at arrival to emergency department; R40.2142 Coma scale, eyes open, spontaneous, at arrival to emergency department; R40.2242 Coma scale, best verbal response, confused conversation, at arrival to emergency department; E78.00 Pure hypercholesterolemia, unspecified; Z78.1 Physical restraint status; Z90.710 Acquired absence of both cervix and uterus; Z95.2 Presence of prosthetic heart valve; Z88.0 Allergy status to penicillin; Z88.1 Allergy status to other antibiotic agents; Z79.82 Long term (current) use of aspirin; Z79.899 Other long term (current) drug therapy; C50.919 Malignant neoplasm of unspecified site of unspecified female breast; G93.89 Other specified disorders of brain
CPT/HCPCS: 36415; 36416; 36430; 36600; 70450; 71045; 71260; 72125; 74018; 74177; 80048; 80053; 80177; 80307; 81001; 82805; 82947; 83735; 84100; 84146; 85025; 85610; 85730; 86850; 86900; 86901; 87040; 93005; 93970; 95712; 95819; 95957; 96374; 96375; C9113; C9254; J0360; J1940; J1953; J2060; J2270; J2272; J2405; J3475; J3480; J7030; J7050; P9035; Q9967

== ENCOUNTER 2023-05-27 09:08 | Outpatient (CLI) | payer MEDICARE, BC | END 2023-05-27 09:09 | disposition home or self-care (01) | LOC: SCSRAD 09:08 | PROVIDERS: ATTEND Surgery | DX: S22.008A Other fracture of unspecified thoracic vertebra, initial encounter for closed fracture (principal); S32.009A Unspecified fracture of unspecified lumbar vertebra, initial encounter for closed fracture; M43.8X6 Other specified deforming dorsopathies, lumbar region; M43.8X4 Other specified deforming dorsopathies, thoracic region | CPT/HCPCS: 72100 ==

== ENCOUNTER 2023-05-27 20:01 | Inpatient (IN) | payer MEDICARE, BC ==
[2023-05-27 21:27] LABS: #Basophils 0.1 thou/uL (0.0-0.2); #Eosinphils 0.1 thou/uL (0.0-0.7); #Monocytes 0.4 thou/uL (0.11-0.59); #Neutrophils 5.3 thou/uL (1.40-6.50); %Basophils 0.8 % (0.0-1.0); %Lymphocytes 10.2 % (21.0-51.0); %Monocytes 5.5 % (0.0-10.0); %Neutrophils 81.2 % (42.0-75.0); Hemoglobin 12.3 g/dL (12.0-16.0); Mean Corpuscular HGB CONC 33.2 g/dL (32.0-36.0); Mean Corpuscular Hemoglobin 31.6 pg (27.0-31.0); Mean Corpuscular Volume 95.1 fl (78.0-98.0); Mean Platelet Volume 9.4 fL (7.4-10.4); Platelet Count 176 10x3/uL (130-400); RBC Distribution Width 12.1 % (11.5-14.5); Red Blood Cell (RBC) Count 3.89 mill/uL (4.20-5.40); White Blood Cell (WBC) Count 6.6 10x3/uL (4.8-10.8)
[2023-05-27 21:37] LABS: PTT 27.4 sec (22.9-36.1); Prothrombin Time 13.2 sec (12.0-14.7)
[2023-05-27 21:46] LABS: Acetaminophen Less than 10 mcg/mL (10.0-30.0); Alcohol Less than 10.0 mg/dL (Less than 10); Salicylate Less than 8.0 mg/dL (15.0-30.0)
[2023-05-27 21:48] LABS: ALT (SGPT) 11 U/L (8-55); AST (SGOT) 15 U/L (5-34); Albumin 4.1 g/dL (3.4-4.8); Alkaline Phosphatase 58 U/L (40-110); Anion Gap 15 mmol/L (10-20); BUN (Urea Nitrogen) 5 mg/dL (9.8-20.1); Bilirubin, Total 0.3 mg/dL (0.2-1.2); CK (CPK) 53 U/L (29-168); Calc. Creatinine Clearance 0 mL/min (70-130); Calcium 9.6 mg/dL (7.8-10.44); Carbon Dioxide 21 mmol/L (23-31); Chloride 100 mmol/L (98-107); Estimated GFR 79; Globulin 2.4 g/dL (2.4-3.5); Glucose 135 mg/dL (83-110); Potassium 4.2 mmol/L (3.5-5.1); Protein, Total 6.5 g/dL (5.8-8.1); Sodium 132 mmol/L (136-145)
[2023-05-27] MEDS ORDERED: LORazepam 2 MG/ML SYR.(CARPUJECT) ONE (22:24)
[2023-05-28] MEDS ORDERED: Lorazepam 2 MG/ML VIAL SLOW IVP PRN (00:14)
[2023-05-28] MEDS ORDERED: Acetaminophen 325 MG TAB PO PRN (00:21)
[2023-05-28] MEDS ORDERED: Senokot S 8.6-50 MG TAB PO PRN (00:21)
[2023-05-28] MEDS ORDERED: Calcium Carbonate 500 MG ChewTAB PO PRN (00:21)
[2023-05-28] MEDS ORDERED: Ondansetron ODT 4 MG TAB PO PRN (00:21)
[2023-05-28 01:05] VITALS: BMI 19.1
[2023-05-28 01:21] LABS: Amphetamine Not Detected (NotDetected); Barbiturates Screen Not Detected (NotDetected); Benzodiazepine Screen Detected (NotDetected); Cocaine Metabolite Screen Not Detected (NotDetected); Methadone Not Detected (NotDetected); Methamphetamine Not Detected (NotDetected); Opiate Screen Not Detected (NotDetected); Oxycodone Screen Not Detected (NotDetected); Phencyclidine (PCP) Not Detected (NotDetected); THC/Cannabinoid Screen Not Detected (NotDetected); Tricyclic Screen Not Detected (NotDetected)
[2023-05-28 01:34] LABS: Lactic Acid 1.4 mmol/L (0.5-2.2)
[2023-05-28 01:55] LABS: Bacteria/HPF None Seen HPF (None Seen); Bilirubin Negative (Negative); Blood, Urine Negative (Negative); Clarity Clear (Clear); Glucose, Urine (Dipstick) Normal (Negative); Ketone, Urine Negative (Negative); Leukocyte Negative Leu/uL (Negative); Nitrite Negative (Negative); Protein, Urine (Dipstick) Negative (Neg-Trace); RBC/HPF None Seen HPF (0-3); Specific Gravity, Urine 1.004 (1.002-1.036); Squamous Epithelial None Seen HPF (0-3); Urobilinogen Normal mg/dL (Less than 2); WBC/HPF 0-3 HPF (0-3); pH, Urine 7.5 (5.0-9.0)
[2023-05-28 04:18] LABS: #Basophils 0.1 thou/uL (0.0-0.2); #Eosinphils 0.1 thou/uL (0.0-0.7); #Monocytes 0.7 thou/uL (0.11-0.59); #Neutrophils 3.8 thou/uL (1.40-6.50); %Basophils 1.1 % (0.0-1.0); %Eosinophils 2.1 % (0.0-10.0); %Lymphocytes 25.8 % (21.0-51.0); %Monocytes 10.7 % (0.0-10.0); Hemoglobin 11.6 g/dL (12.0-16.0); Mean Corpuscular HGB CONC 33.8 g/dL (32.0-36.0); Mean Corpuscular Hemoglobin 31.8 pg (27.0-31.0); Mean Platelet Volume 9.5 fL (7.4-10.4); Platelet Count 174 10x3/uL (130-400); Red Blood Cell (RBC) Count 3.65 mill/uL (4.20-5.40); White Blood Cell (WBC) Count 6.3 10x3/uL (4.8-10.8)
[2023-05-28 04:38] LABS: Anion Gap 12 mmol/L (10-20); BUN (Urea Nitrogen) Less than 4 mg/dL (9.8-20.1); Calc. Creatinine Clearance 54 mL/min (70-130); Calcium 9.1 mg/dL (7.8-10.44); Carbon Dioxide 21 mmol/L (23-31); Chloride 107 mmol/L (98-107); Estimated GFR 92; Glucose 92 mg/dL (83-110); Potassium 3.5 mmol/L (3.5-5.1); Sodium 136 mmol/L (136-145)
[2023-05-28] MEDS ORDERED: levETIRAcetam 500 MG/5 ML VIAL SLOW IVP SCH (09:00)
[2023-05-28] MEDS ORDERED: Magnevist 469MG/ML 20 ML VIAL ONE (09:56)
[2023-05-28] MEDS: QUEtiapine 25 MG TAB PO SCH (09:57)
[2023-05-28] MEDS: Cholecalciferol 1,000 UNITS (25 MCG) TAB PO SCH (09:57)
[2023-05-28] MEDS: Famotidine 20 MG TAB PO SCH ×3 (09:57→21:27)
[2023-05-28] MEDS ORDERED: Lorazepam 2 MG/ML VIAL SLOW IVP SCH ×2 (11:30→19:45)
[2023-05-28] MEDS: Atorvastatin Calcium 40 MG TAB PO SCH (12:30)
[2023-05-28] MEDS: Aspirin 81 mg Enteric Coated Tablet PO SCH (17:01)
[2023-05-28] MEDS ORDERED: Lorazepam 0.5 MG TAB PO SCH (19:45)
[2023-05-28] MEDS: levETIRAcetam 500 mg/5 ml Oral Solution PO SCH (20:10)
[2023-05-28] MEDS: Thiamine 100 MG TAB PO SCH ×2 (20:11→21:27)
[2023-05-28] MEDS: Folic Acid 1 MG TAB PO SCH ×2 (20:11→21:27)
[2023-05-28] MEDS: Cyanocobalamin (Vitamin B-12) 1,000 MCG TAB PO SCH ×2 (20:11→21:27)
[2023-05-28] MEDS: Multivit, Therapeutic 1 TAB PO SCH ×2 (20:11→21:28)
[2023-05-28] MEDS ORDERED: Amlodipine 5 MG TAB PO SCH (21:00)
[2023-05-29 04:39] LABS: #Basophils 0.1 thou/uL (0.0-0.2); #Eosinphils 0.4 thou/uL (0.0-0.7); #Monocytes 0.5 thou/uL (0.11-0.59); #Neutrophils 2.9 thou/uL (1.40-6.50); %Basophils 1.7 % (0.0-1.0); %Eosinophils 7.1 % (0.0-10.0); %Lymphocytes 25.2 % (21.0-51.0); %Monocytes 9.2 % (0.0-10.0); %Neutrophils 56.6 % (42.0-75.0); Hemoglobin 12.5 g/dL (12.0-16.0); Mean Corpuscular HGB CONC 33.9 g/dL (32.0-36.0); Mean Corpuscular Hemoglobin 32.3 pg (27.0-31.0); Mean Corpuscular Volume 95.3 fl (78.0-98.0); Mean Platelet Volume 9.4 fL (7.4-10.4); Platelet Count 170 10x3/uL (130-400); RBC Distribution Width 12.3 % (11.5-14.5); Red Blood Cell (RBC) Count 3.87 mill/uL (4.20-5.40); White Blood Cell (WBC) Count 5.2 10x3/uL (4.8-10.8)
[2023-05-29 05:05] LABS: Anion Gap 13 mmol/L (10-20); BUN (Urea Nitrogen) 5 mg/dL (9.8-20.1); Calc. Creatinine Clearance 58 mL/min (70-130); Calcium 9.1 mg/dL (7.8-10.44); Carbon Dioxide 22 mmol/L (23-31); Cardiac Risk 3.2 (Less than 4.5); Chloride 106 mmol/L (98-107); Cholesterol 153 mg/dl (< 200 Desired); Estimated GFR 93; Glucose 89 mg/dL (83-110); HDL Cholesterol 48 mg/dL (>60 Neg Risk); LDL Cholesterol, Calculated 81 mg/dL; Magnesium 1.8 mg/dL (1.6-2.6); Potassium 3.6 mmol/L (3.5-5.1); Sodium 137 mmol/L (136-145); Triglycerides 118 mg/dL (Less than 150)
[2023-05-29] MEDS: levETIRAcetam 500 mg/5 ml Oral Solution PO SCH ×2 (09:28→19:38)
[2023-05-29] MEDS: Cholecalciferol 1,000 UNITS (25 MCG) TAB PO SCH (09:30)
[2023-05-29] MEDS: Famotidine 20 MG TAB PO SCH ×2 (09:30→19:38)
[2023-05-29] MEDS: QUEtiapine 25 MG TAB PO SCH (09:30)
[2023-05-29] MEDS ORDERED: Haloperidol Lactate 5 MG/ML VIAL IM SCH (11:15)
[2023-05-29] MEDS: Atorvastatin Calcium 40 MG TAB PO SCH ×2 (12:35→19:39)
[2023-05-29] MEDS ORDERED: Aspirin Chewable 81 MG TAB PO SCH (17:30)
[2023-05-29] MEDS: Aspirin 81 mg Enteric Coated Tablet PO SCH (17:44)
[2023-05-29] MEDS: Multivit, Therapeutic 1 TAB PO SCH (19:39)
[2023-05-29] MEDS: Folic Acid 1 MG TAB PO SCH (19:39)
[2023-05-29] MEDS: Cyanocobalamin (Vitamin B-12) 1,000 MCG TAB PO SCH (19:39)
[2023-05-29] MEDS: Thiamine 100 MG TAB PO SCH (19:39)
[2023-05-30 05:41] LABS: #Basophils 0.1 thou/uL (0.0-0.2); #Eosinphils 0.3 thou/uL (0.0-0.7); #Monocytes 0.5 thou/uL (0.11-0.59); #Neutrophils 2.8 thou/uL (1.40-6.50); %Basophils 1.9 % (0.0-1.0); %Lymphocytes 20.8 % (21.0-51.0); %Monocytes 9.8 % (0.0-10.0); %Neutrophils 60.3 % (42.0-75.0); Mean Corpuscular Volume 94.1 fl (78.0-98.0); Mean Platelet Volume 9.4 fL (7.4-10.4); Platelet Count 171 10x3/uL (130-400); Red Blood Cell (RBC) Count 3.75 mill/uL (4.20-5.40); White Blood Cell (WBC) Count 4.7 10x3/uL (4.8-10.8)
[2023-05-30 06:06] LABS: Anion Gap 14 mmol/L (10-20); BUN (Urea Nitrogen) 5 mg/dL (9.8-20.1); Calc. Creatinine Clearance 53 mL/min (70-130); Calcium 9.5 mg/dL (7.8-10.44); Carbon Dioxide 23 mmol/L (23-31); Chloride 104 mmol/L (98-107); Estimated GFR 91; Glucose 97 mg/dL (83-110); Potassium 3.3 mmol/L (3.5-5.1); Sodium 138 mmol/L (136-145)
[2023-05-30] MEDS: QUEtiapine 25 MG TAB PO SCH (08:36)
[2023-05-30] MEDS: Famotidine 20 MG TAB PO SCH ×2 (08:36→21:22)
[2023-05-30] MEDS: levETIRAcetam 500 mg/5 ml Oral Solution PO SCH ×2 (08:36→21:21)
[2023-05-30] MEDS: Aspirin Chewable 81 MG TAB PO SCH (08:36)
[2023-05-30] MEDS: Cholecalciferol 1,000 UNITS (25 MCG) TAB PO SCH (08:36)
[2023-05-30] MEDS: Metoprolol Tartrate 25 MG TAB PO SCH ×2 (08:36→21:22)
[2023-05-30] MEDS: Thiamine 100 MG TAB PO SCH (21:21)
[2023-05-30] MEDS: Multivit, Therapeutic 1 TAB PO SCH (21:21)
[2023-05-30] MEDS: Cyanocobalamin (Vitamin B-12) 1,000 MCG TAB PO SCH (21:21)
[2023-05-30] MEDS: Folic Acid 1 MG TAB PO SCH (21:22)
[2023-05-30] MEDS: Atorvastatin Calcium 40 MG TAB PO SCH (21:23)
[2023-05-31 05:57] LABS: #Basophils 0.1 thou/uL (0.0-0.2); #Eosinphils 0.2 thou/uL (0.0-0.7); #Monocytes 0.5 thou/uL (0.11-0.59); #Neutrophils 3.6 thou/uL (1.40-6.50); %Basophils 1.4 % (0.0-1.0); %Lymphocytes 13.7 % (21.0-51.0); %Monocytes 10.2 % (0.0-10.0); %Neutrophils 71.5 % (42.0-75.0); Hemoglobin 12.2 g/dL (12.0-16.0); Mean Corpuscular HGB CONC 34.4 g/dL (32.0-36.0); Mean Corpuscular Hemoglobin 32.4 pg (27.0-31.0); Mean Corpuscular Volume 94.2 fl (78.0-98.0); Mean Platelet Volume 9.4 fL (7.4-10.4); Platelet Count 172 10x3/uL (130-400); RBC Distribution Width 12.2 % (11.5-14.5); Red Blood Cell (RBC) Count 3.77 mill/uL (4.20-5.40)
[2023-05-31 06:22] LABS: Anion Gap 14 mmol/L (10-20); BUN (Urea Nitrogen) 4 mg/dL (9.8-20.1); Calc. Creatinine Clearance 58 mL/min (70-130); Calcium 9.5 mg/dL (7.8-10.44); Carbon Dioxide 24 mmol/L (23-31); Chloride 103 mmol/L (98-107); Estimated GFR 93; Glucose 103 mg/dL (83-110); Potassium 3.8 mmol/L (3.5-5.1); Sodium 137 mmol/L (136-145)
[2023-05-31] MEDS: Aspirin Chewable 81 MG TAB PO SCH (09:20)
[2023-05-31] MEDS: levETIRAcetam 500 mg/5 ml Oral Solution PO SCH (09:20)
[2023-05-31] MEDS: QUEtiapine 25 MG TAB PO SCH (09:20)
[2023-05-31] MEDS: Cholecalciferol 1,000 UNITS (25 MCG) TAB PO SCH (09:20)
[2023-05-31] MEDS: Famotidine 20 MG TAB PO SCH (09:20)
[2023-05-31] MEDS: Metoprolol Tartrate 25 MG TAB PO SCH (09:20)
[2023-05-31] MEDS ORDERED: Lorazepam 0.5 MG TAB PO PRN (14:19)
[2023-05-31 16:33] VITALS: BP 123/79; TEMP 99.8
== END 2023-05-31 20:02 | disposition home or self-care (01) | DRG 65 ==
LOC: ERS 20:01 → IMCU/EMU 23:43 → OBSVTOIN 23:43 → 2SE 05-28 18:16
PROVIDERS: ADMIT Student in an Organized Health Care Education/Training Program; ATTEND Internal Medicine
DX: I63.9 Cerebral infarction, unspecified (principal); E87.1 Hypo-osmolality and hyponatremia; E87.20 Acidosis, unspecified; R56.9 Unspecified convulsions; I10 Essential (primary) hypertension; I25.10 Atherosclerotic heart disease of native coronary artery without angina pectoris; I35.0 Nonrheumatic aortic (valve) stenosis; E78.5 Hyperlipidemia, unspecified; F03.90 Unspecified dementia, unspecified severity, without behavioral disturbance, psychotic disturbance, mood disturbance, and anxiety; F22 Delusional disorders; E87.6 Hypokalemia; Z88.0 Allergy status to penicillin; Z88.8 Allergy status to other drugs, medicaments and biological substances; Z83.3 Family history of diabetes mellitus; Z79.899 Other long term (current) drug therapy; Z98.890 Other specified postprocedural states; Z95.1 Presence of aortocoronary bypass graft; Z87.820 Personal history of traumatic brain injury
CPT/HCPCS: 36415; 36416; 70450; 70553; 72100; 80048; 80053; 80061; 80306; 80307; 81001; 82550; 83605; 83735; 84100; 85025; 85610; 85730; 86140; 93005; 93306; 93880; 95712; 95819; 95957; 96361; 96374; A9579; J1953; J2060

== ENCOUNTER 2023-06-21 18:23 | Inpatient (IN) | payer MEDICARE, BC ==
[2023-06-21] MEDS ORDERED: levETIRAcetam 500 MG/5 ML VIAL ONE ×2 (18:38→19:02)
[2023-06-21] MEDS ORDERED: Aspirin 325 MG TAB ONE (18:38)
[2023-06-21 18:56] LABS: #Basophils 0.1 thou/uL (0.0-0.2); #Eosinphils 0.1 thou/uL (0.0-0.7); #Monocytes 0.3 thou/uL (0.11-0.59); #Neutrophils 4.5 thou/uL (1.40-6.50); %Basophils 1.4 % (0.0-1.0); %Eosinophils 1.4 % (0.0-10.0); %Lymphocytes 14.3 % (21.0-51.0); %Monocytes 4.9 % (0.0-10.0); %Neutrophils 77.7 % (42.0-75.0); Hemoglobin 11.1 g/dL (12.0-16.0); Mean Corpuscular HGB CONC 33.4 g/dL (32.0-36.0); Mean Corpuscular Hemoglobin 31.6 pg (27.0-31.0); Mean Corpuscular Volume 94.6 fl (78.0-98.0); Mean Platelet Volume 9.4 fL (7.4-10.4); Platelet Count 177 10x3/uL (130-400); RBC Distribution Width 11.9 % (11.5-14.5); Red Blood Cell (RBC) Count 3.51 mill/uL (4.20-5.40); White Blood Cell (WBC) Count 5.7 10x3/uL (4.8-10.8)
[2023-06-21 19:21] LABS: PTT 28.7 sec (22.9-36.1); Prothrombin Time 13.7 sec (12.0-14.7)
[2023-06-21 19:22] LABS: ALT (SGPT) 9 U/L (8-55); AST (SGOT) 11 U/L (5-34); Albumin 3.8 g/dL (3.4-4.8); Alkaline Phosphatase 39 U/L (40-110); Anion Gap 22 mmol/L (10-20); BUN (Urea Nitrogen) 6 mg/dL (9.8-20.1); Bilirubin, Total Less than 0.2 mg/dL (0.2-1.2); Calc. Creatinine Clearance 0 mL/min (70-130); Calcium 8.7 mg/dL (7.8-10.44); Carbon Dioxide 13 mmol/L (23-31); Chloride 95 mmol/L (98-107); Estimated GFR 82; Globulin 2.4 g/dL (2.4-3.5); Glucose 129 mg/dL (83-110); Lipase 22 U/L (8-78); Magnesium 1.6 mg/dL (1.6-2.6); Potassium 3.3 mmol/L (3.5-5.1); Protein, Total 6.2 g/dL (5.8-8.1); Sodium 127 mmol/L (136-145)
[2023-06-21 21:35] LABS: Bacteria/HPF None Seen HPF (None Seen); Bilirubin Negative (Negative); Blood, Urine Negative (Negative); CAUTI Indications for Culture Alt mental st,lethar; Clarity Clear (Clear); Glucose, Urine (Dipstick) Normal (Negative); Ketone, Urine Negative (Negative); Leukocyte Negative Leu/uL (Negative); Nitrite Negative (Negative); Protein, Urine (Dipstick) Negative (Neg-Trace); RBC/HPF 0-3 HPF (0-3); Specific Gravity, Urine 1.016 (1.002-1.036); Squamous Epithelial None Seen HPF (0-3); Urobilinogen Normal mg/dL (Less than 2); WBC/HPF None Seen HPF (0-3)
[2023-06-21 21:45] LABS: Urine Culture Reflex No No
[2023-06-21] MEDS ORDERED: Magnesium 2 GM/50 ML(in water) 2 GM in Premix Bag 1 BAG IVPB SCH (22:15)
[2023-06-21] MEDS ORDERED: Electrolyte Replacement Protocol 1 EACH FS SCH (22:15)
[2023-06-21] MEDS ORDERED: Potassium Chloride 20 MEQ TAB PO SCH (22:15)
[2023-06-21 22:20] LABS: Troponin I 0.012 ng/mL (< 0.028)
[2023-06-21] MEDS ORDERED: Lorazepam 2 MG/ML VIAL SLOW IVP PRN (22:31)
[2023-06-21 23:46] VITALS: BMI 17.8
[2023-06-22 00:05] LABS: Lactic Acid 1.1 mmol/L (0.5-2.2)
[2023-06-22 01:17] LABS: Troponin I 0.029 ng/mL (< 0.028)
[2023-06-22 04:57] LABS: Magnesium 2.4 mg/dL (1.6-2.6)
[2023-06-22] MEDS ORDERED: Ondansetron ODT 4 MG TAB PO PRN (07:07)
[2023-06-22] MEDS ORDERED: Ondansetron PF 4 MG/2 ML Vial IVP PRN (07:07)
[2023-06-22] MEDS ORDERED: Acetaminophen 325 MG TAB PO PRN (07:07)
[2023-06-22] MEDS ORDERED: Acetaminophen 650 MG Suppository PR PRN (07:07)
[2023-06-22 07:57] LABS: #Basophils 0.1 thou/uL (0.0-0.2); #Eosinphils 0.2 thou/uL (0.0-0.7); #Monocytes 0.5 thou/uL (0.11-0.59); #Neutrophils 3.3 thou/uL (1.40-6.50); %Basophils 1.7 % (0.0-1.0); %Eosinophils 4.7 % (0.0-10.0); %Lymphocytes 20.7 % (21.0-51.0); %Monocytes 9.7 % (0.0-10.0); Hemoglobin 12.5 g/dL (12.0-16.0); Mean Corpuscular HGB CONC 33.2 g/dL (32.0-36.0); Mean Corpuscular Hemoglobin 30.9 pg (27.0-31.0); Mean Corpuscular Volume 93.1 fl (78.0-98.0); Mean Platelet Volume 9.3 fL (7.4-10.4); Platelet Count 228 10x3/uL (130-400); RBC Distribution Width 12.1 % (11.5-14.5); Red Blood Cell (RBC) Count 4.04 mill/uL (4.20-5.40); White Blood Cell (WBC) Count 5.2 10x3/uL (4.8-10.8)
[2023-06-22 08:32] LABS: Anion Gap 12 mmol/L (10-20); BUN (Urea Nitrogen) 4 mg/dL (9.8-20.1); Calc. Creatinine Clearance 51 mL/min (70-130); Calcium 9.8 mg/dL (7.6-10.4); Carbon Dioxide 25 mmol/L (23-31); Chloride 106 mmol/L (98-107); Estimated GFR 90; Glucose 92 mg/dL (83-110); Potassium 4.1 mmol/L (3.5-5.1); Sodium 139 mmol/L (136-145)
[2023-06-22] MEDS ORDERED: Cyanocobalamin (Vitamin B-12) 1,000 MCG TAB PO SCH (09:00)
[2023-06-22] MEDS ORDERED: levETIRAcetam 500 MG/5 ML VIAL SLOW IVP SCH (09:00)
[2023-06-22] MEDS ORDERED: Aspirin 81 mg Enteric Coated Tablet PO SCH (09:00)
[2023-06-22] MEDS ORDERED: Folic Acid 1 MG TAB PO SCH (09:00)
[2023-06-22] MEDS ORDERED: QUEtiapine 25 MG TAB PO SCH (09:00)
[2023-06-22 11:57] VITALS: TEMP 98.2
[2023-06-22 15:32] VITALS: BP 100/63
[2023-06-22] MEDS ORDERED: Atorvastatin Calcium 40 MG TAB PO SCH (21:00)
[2023-06-22] MEDS ORDERED: Melatonin 3 MG TAB PO SCH (21:00)
[2023-06-22] MEDS ORDERED: traZODone HCl 50 MG TAB PO SCH (21:00)
[2023-06-22] MEDS ORDERED: levETIRAcetam 500 MG TAB PO SCH (21:00)
[2023-06-22] MEDS ORDERED: Mirtazapine 15 MG Soltab PO SCH (21:00)
== END 2023-06-22 16:35 | disposition home or self-care (01) | DRG 101 ==
LOC: ERS 18:23 → 2SE 20:43
PROVIDERS: ADMIT Student in an Organized Health Care Education/Training Program; ATTEND Internal Medicine
PROC: 4A10X4Z Monitoring of Central Nervous Electrical Activity, External Approach (ICD-10-PCS; principal; 2023-06-22)
DX: G40.409 Other generalized epilepsy and epileptic syndromes, not intractable, without status epilepticus (principal); E87.1 Hypo-osmolality and hyponatremia; G81.94 Hemiplegia, unspecified affecting left nondominant side; E44.0 Moderate protein-calorie malnutrition; Z68.1 Body mass index [BMI] 19.9 or less, adult; E78.5 Hyperlipidemia, unspecified; E78.00 Pure hypercholesterolemia, unspecified; I10 Essential (primary) hypertension; G83.84 Todd's paralysis (postepileptic); F03.90 Unspecified dementia, unspecified severity, without behavioral disturbance, psychotic disturbance, mood disturbance, and anxiety; E87.6 Hypokalemia; I25.10 Atherosclerotic heart disease of native coronary artery without angina pectoris; D64.9 Anemia, unspecified; G93.89 Other specified disorders of brain; Z85.3 Personal history of malignant neoplasm of breast; Z90.710 Acquired absence of both cervix and uterus; Z95.2 Presence of prosthetic heart valve; Z98.890 Other specified postprocedural states; Z88.0 Allergy status to penicillin; Z88.8 Allergy status to other drugs, medicaments and biological substances; Z88.1 Allergy status to other antibiotic agents; Z95.1 Presence of aortocoronary bypass graft; Z79.82 Long term (current) use of aspirin; Z79.899 Other long term (current) drug therapy; I69.398 Other sequelae of cerebral infarction
CPT/HCPCS: 36415; 70450; 70496; 70498; 70551; 71045; 80048; 80053; 81001; 83605; 83690; 83735; 84443; 84484; 85025; 85610; 85730; 93005; 95712; 95819; 95957; 96374; J1953; J3475; Q9967

== ENCOUNTER 2023-09-28 08:27 | Day surgery (SDC) | payer MEDICARE, BC ==
[2023-09-28] MEDS ORDERED: Ondansetron PF 4 MG/2 ML Vial ONE ×2 (09:17→11:23)
[2023-09-28] MEDS ORDERED: levETIRAcetam 500 MG/5 ML VIAL ONE (09:18)
[2023-09-28 09:24] LABS: #Basophils 0.1 thou/uL (0.0-0.2); #Eosinphils 0.1 thou/uL (0.0-0.7); #Monocytes 0.4 thou/uL (0.11-0.59); #Neutrophils 4.4 thou/uL (1.40-6.50); %Basophils 1.3 % (0.0-1.0); %Lymphocytes 17.8 % (21.0-51.0); %Monocytes 6.2 % (0.0-10.0); %Neutrophils 73.5 % (42.0-75.0); Hematocrit 39.8 % (36.0-47.0); Hemoglobin 13.8 g/dL (12.0-16.0); Mean Corpuscular HGB CONC 34.7 g/dL (32.0-36.0); Mean Corpuscular Hemoglobin 31.7 pg (27.0-31.0); Mean Corpuscular Volume 91.3 fl (78.0-98.0); Mean Platelet Volume 8.9 fL (7.4-10.4); Platelet Count 227 10x3/uL (130-400); RBC Distribution Width 11.9 % (11.5-14.5); Red Blood Cell (RBC) Count 4.36 mill/uL (4.20-5.40)
[2023-09-28 09:56] LABS: ALT (SGPT) 15 U/L (8-55); AST (SGOT) 18 U/L (5-34); Albumin 5.3 g/dL (3.4-4.8); Alkaline Phosphatase 55 U/L (40-110); Anion Gap 16 mmol/L (10-20); BUN (Urea Nitrogen) 11 mg/dL (9.8-20.1); Bilirubin, Total 0.7 mg/dL (0.2-1.2); Calc. Creatinine Clearance 0 mL/min (70-130); Calcium 10.6 mg/dL (7.8-10.44); Carbon Dioxide 24 mmol/L (23-31); Chloride 103 mmol/L (98-107); Estimated GFR 84; Globulin 3.4 g/dL (2.4-3.5); Glucose 114 mg/dL (83-110); Potassium 3.8 mmol/L (3.5-5.1); Protein, Total 8.7 g/dL (5.8-8.1); Sodium 139 mmol/L (136-145)
[2023-09-28] MEDS ORDERED: fentaNYL 50 mcg/mL 1 mL Vial ONE (10:57)
[2023-09-28] MEDS ORDERED: SUGAMMADEX SODIUM 200 MG/2 ML VIAL ONE (10:58)
[2023-09-28] MEDS ORDERED: PROPOFOL 200 MG/20 ML VIAL ONE (11:23)
[2023-09-28] MEDS ORDERED: Succinylcholine 200 MG/10 ml SYRINGE FS ONE (11:23)
[2023-09-28] MEDS ORDERED: Lidocaine 1% PF 5 ML VIAL ONE (11:23)
[2023-09-28] MEDS ORDERED: Dexamethasone 20 MG/5 ML VIAL ONE (11:23)
[2023-09-28] MEDS ORDERED: Rocuronium Bromide 10 MG/ML (10ML VIAL) ONE (11:23)
== END 2023-09-28 13:30 | disposition home or self-care (01) ==
LOC: ERS 08:27 → SDC 09:38
PROVIDERS: ATTEND Internal Medicine
PROC: 0DC58ZZ Extirpation of Matter from Esophagus, Via Natural or Artificial Opening Endoscopic (ICD-10-PCS; principal; 2023-09-28)
PROC: 0DB28ZX Excision of Middle Esophagus, Via Natural or Artificial Opening Endoscopic, Diagnostic (ICD-10-PCS; 2023-09-28)
DX: T18.128A Food in esophagus causing other injury, initial encounter (principal); K20.0 Eosinophilic esophagitis; I25.10 Atherosclerotic heart disease of native coronary artery without angina pectoris; G40.909 Epilepsy, unspecified, not intractable, without status epilepticus; Z88.1 Allergy status to other antibiotic agents; Z88.0 Allergy status to penicillin; Z86.73 Personal history of transient ischemic attack (TIA), and cerebral infarction without residual deficits; Z95.1 Presence of aortocoronary bypass graft; Z79.82 Long term (current) use of aspirin; W44.F3XA Food entering into or through a natural orifice, initial encounter
CPT/HCPCS: 43239; 43247; 71045; 80053; 85025; 93005; J1953; J3010; 88305; 96374; 96375; J1100; J2405; J2704

== ENCOUNTER 2023-10-21 20:38 | Emergency (ER) | payer MEDICARE, BC ==
[2023-10-21 22:41] LABS: #Basophils 0.1 thou/uL (0.0-0.2); #Eosinphils 0.1 thou/uL (0.0-0.7); #Monocytes 0.8 thou/uL (0.11-0.59); #Neutrophils 8.3 thou/uL (1.40-6.50); %Basophils 0.7 % (0.0-1.0); %Eosinophils 0.5 % (0.0-10.0); %Lymphocytes 11.6 % (21.0-51.0); %Monocytes 7.3 % (0.0-10.0); %Neutrophils 79.7 % (42.0-75.0); Hematocrit 32.9 % (36.0-47.0); Hemoglobin 11.3 g/dL (12.0-16.0); Mean Corpuscular HGB CONC 34.3 g/dL (32.0-36.0); Mean Corpuscular Hemoglobin 32.2 pg (27.0-31.0); Mean Corpuscular Volume 93.7 fl (78.0-98.0); Mean Platelet Volume 8.6 fL (7.4-10.4); Platelet Count 230 10x3/uL (130-400); RBC Distribution Width 11.9 % (11.5-14.5); Red Blood Cell (RBC) Count 3.51 mill/uL (4.20-5.40); White Blood Cell (WBC) Count 10.3 10x3/uL (4.8-10.8)
[2023-10-21 23:03] LABS: ALT (SGPT) 9 U/L (8-55); AST (SGOT) 13 U/L (5-34); Alkaline Phosphatase 45 U/L (40-110); Anion Gap 12 mmol/L (10-20); BUN (Urea Nitrogen) 6 mg/dL (9.8-20.1); Bilirubin, Total 0.6 mg/dL (0.2-1.2); Calc. Creatinine Clearance 0 mL/min (70-130); Calcium 8.9 mg/dL (7.8-10.44); Carbon Dioxide 23 mmol/L (23-31); Chloride 107 mmol/L (98-107); Estimated GFR 93; Globulin 2.4 g/dL (2.4-3.5); Glucose 98 mg/dL (83-110); Potassium 3.4 mmol/L (3.5-5.1); Protein, Total 6.4 g/dL (5.8-8.1); Sodium 139 mmol/L (136-145)
[2023-10-21 23:06] LABS: Troponin I 0.097 ng/mL (< 0.028)
[2023-10-21 23:51] LABS: Bacteria/HPF None Seen HPF (None Seen); Bilirubin Negative (Negative); Blood, Urine Negative (Negative); CAUTI Indications for Culture Alt mental st,lethar; Clarity Clear (Clear); Glucose, Urine (Dipstick) Normal (Negative); Ketone, Urine Negative (Negative); Leukocyte Negative Leu/uL (Negative); Nitrite Negative (Negative); Protein, Urine (Dipstick) 20 mg/dL (Neg-Trace); Specific Gravity, Urine 1.029 (1.002-1.036); Squamous Epithelial None Seen HPF (0-3); Urobilinogen Normal mg/dL (Less than 2); WBC/HPF 0-3 HPF (0-3)
[2023-10-22] LABS: Urine Culture Reflex No No
[2023-10-22] MEDS ORDERED: Aspirin 325 MG TAB ONE (00:37)
[2023-10-22 01:10] LABS: Magnesium 1.7 mg/dL (1.6-2.6)
[2023-10-22 08:24] LABS: Troponin I 0.115 ng/mL (< 0.028)
== END 2023-10-22 10:09 | disposition short-term general hospital (02) ==
LOC: ERS 20:38
DX: R56.9 Unspecified convulsions (principal); I47.20 Ventricular tachycardia, unspecified; R79.89 Other specified abnormal findings of blood chemistry; R55 Syncope and collapse; I10 Essential (primary) hypertension; E78.00 Pure hypercholesterolemia, unspecified; Z79.899 Other long term (current) drug therapy
CPT/HCPCS: 36415; 71045; 80053; 81001; 83605; 83735; 83880; 84484; 85025; 93005; 96360; 96361

== ENCOUNTER 2023-12-21 09:39 | Outpatient (CLI) | payer BC, MEDICARE | END 2023-12-21 09:40 | disposition home or self-care (01) | LOC: BICMAMMO 09:39 | PROVIDERS: ATTEND Internal Medicine | DX: Z12.31 Encounter for screening mammogram for malignant neoplasm of breast (principal); Z85.3 Personal history of malignant neoplasm of breast; Z98.890 Other specified postprocedural states | CPT/HCPCS: 77063; 77067 ==

== ENCOUNTER 2024-06-14 10:59 | Emergency (ER) | payer MEDICARE ==
[2024-06-14 11:51] LABS: #Basophils 0.12 10x3/uL (0.0-0.2); %Basophils 1.1 % (0.0-1.0); %Lymphocytes 19.1 % (21.0-51.0); %Monocytes 6.7 % (0.0-10.0); %Neutrophils 69.7 % (42.0-75.0); Hematocrit 40.2 % (36.0-47.0); Hemoglobin 13.4 g/dL (12.0-16.0); Mean Corpuscular HGB CONC 33.3 g/dL (32.0-36.0); Mean Corpuscular Hemoglobin 32.2 pg (27.0-31.0); Mean Corpuscular Volume 96.6 fL (78.0-98.0); Platelet Count 256 10x3/uL (130-400); RBC Distribution Width 11.7 % (11.5-14.5); Red Blood Cell (RBC) Count 4.16 mill/uL (4.20-5.40)
[2024-06-14 12:09] LABS: ALT (SGPT) 15 U/L (8-55); AST (SGOT) 18 U/L (5-34); Albumin 4.3 g/dL (3.4-4.8); Alkaline Phosphatase 44 U/L (40-110); Anion Gap 24 mmol/L (10-20); BUN (Urea Nitrogen) 14 mg/dL (9.8-20.1); Bilirubin, Total 0.4 mg/dL (0.2-1.2); CK (CPK) 56 U/L (29-168); Calc. Creatinine Clearance 0 mL/min (70-130); Calcium 9.3 mg/dL (7.8-10.44); Carbon Dioxide 12 mmol/L (23-31); Chloride 104 mmol/L (98-107); Estimated GFR 77; Glucose 158 mg/dL (83-110); Potassium 3.5 mmol/L (3.5-5.1); Protein, Total 7.3 g/dL (5.8-8.1); Sodium 136 mmol/L (136-145)
[2024-06-14 12:13] LABS: Troponin I Less than 0.010 ng/mL (< 0.028)
[2024-06-14 12:16] LABS: Prothrombin Time 13.4 sec (12.0-14.7)
[2024-06-14 12:17] LABS: PTT 29.1 sec (22.9-36.1)
[2024-06-14 12:31] LABS: Acetaminophen Less than 10 mcg/mL (10.0-30.0); Alcohol Less than 10.0 mg/dL (Less than 10); Salicylate Less than 8.0 mg/dL (15.0-30.0)
[2024-06-14 14:30] LABS: Bacteria/HPF None Seen HPF (None Seen); Bilirubin Negative (Negative); Blood, Urine Negative (Negative); CAUTI Indications for Culture Immunosuppressed; Clarity Clear (Clear); Glucose, Urine (Dipstick) Normal (Negative); Ketone, Urine Negative (Negative); Leukocyte Negative Leu/uL (Negative); Nitrite Negative (Negative); Protein, Urine (Dipstick) Negative (Neg-Trace); RBC/HPF 0-3 HPF (0-3); Specific Gravity, Urine 1.034 (1.002-1.036); Squamous Epithelial None Seen HPF (0-3); Urobilinogen Normal mg/dL (Less than 2); WBC/HPF 0-3 HPF (0-3); pH, Urine 6.5 (5.0-9.0)
[2024-06-14 14:34] LABS: Amphetamine Not Detected (NotDetected); Barbiturates Screen Not Detected (NotDetected); Benzodiazepine Screen Detected (NotDetected); Cocaine Metabolite Screen Not Detected (NotDetected); Methadone Not Detected (NotDetected); Methamphetamine Not Detected (NotDetected); Opiate Screen Not Detected (NotDetected); Oxycodone Screen Not Detected (NotDetected); Phencyclidine (PCP) Not Detected (NotDetected); THC/Cannabinoid Screen Not Detected (NotDetected); Tricyclic Screen Not Detected (NotDetected)
[2024-06-14 14:36] LABS: Urine Culture Reflex Yes Yes
== END 2024-06-14 15:34 | disposition home or self-care (01) ==
LOC: ERS 10:59
DX: R56.9 Unspecified convulsions (principal); I10 Essential (primary) hypertension; E78.00 Pure hypercholesterolemia, unspecified; Z79.82 Long term (current) use of aspirin; Z87.891 Personal history of nicotine dependence; Z79.899 Other long term (current) drug therapy
CPT/HCPCS: 36415; 36416; 70450; 70496; 70498; 71045; 80053; 80306; 80307; 81001; 82550; 84146; 84443; 84484; 85025; 85610; 85730; 87086; 93005; 94760; 96374; 96375; Q9967

== ENCOUNTER 2024-10-16 16:29 | Emergency (ER) | payer MEDICARE ==
[2024-10-16 17:15] LABS: #Basophils 0.06 10x3/uL (0.0-0.2); %Basophils 1.1 % (0.0-1.0); %Eosinophils 2.3 % (0.0-10.0); %Lymphocytes 20.5 % (21.0-51.0); %Monocytes 14.6 % (0.0-10.0); %Neutrophils 61.3 % (42.0-75.0); Hematocrit 36.2 % (36.0-47.0); Mean Corpuscular HGB CONC 35.9 g/dL (32.0-36.0); Mean Corpuscular Hemoglobin 31.7 pg (27.0-31.0); Mean Corpuscular Volume 88.3 fL (78.0-98.0); Platelet Count 139 10x3/uL (130-400); RBC Distribution Width 11.9 % (11.5-14.5)
[2024-10-16 17:29] LABS: ALT (SGPT) 13 U/L (8-55); AST (SGOT) 20 U/L (5-34); Albumin 3.9 g/dL (3.4-4.8); Alkaline Phosphatase 37 U/L (40-110); Anion Gap 14 mmol/L (10-20); BUN (Urea Nitrogen) 10 mg/dL (9.8-20.1); Bilirubin, Total 0.5 mg/dL (0.2-1.2); Calc. Creatinine Clearance 0 mL/min (70-130); Calcium 9.3 mg/dL (7.8-10.44); Carbon Dioxide 24 mmol/L (23-31); Chloride 94 mmol/L (98-107); Estimated GFR 82; Globulin 3.3 g/dL (2.4-3.5); Glucose 98 mg/dL (83-110); Magnesium 1.4 mg/dL (1.6-2.6); Potassium 3.3 mmol/L (3.5-5.1); Protein, Total 7.2 g/dL (5.8-8.1); Sodium 129 mmol/L (136-145)
[2024-10-16 17:35] LABS: Troponin I 0.013 ng/mL (< 0.028)
== END 2024-10-16 20:40 | disposition home or self-care (01) ==
LOC: ERS 16:29
DX: R00.2 Palpitations (principal); E87.1 Hypo-osmolality and hyponatremia; I25.10 Atherosclerotic heart disease of native coronary artery without angina pectoris; I10 Essential (primary) hypertension; Z85.3 Personal history of malignant neoplasm of breast; Z95.1 Presence of aortocoronary bypass graft; Z95.0 Presence of cardiac pacemaker
CPT/HCPCS: 36415; 70450; 71045; 80053; 83735; 83880; 84443; 84484; 85025; 93005

== ENCOUNTER 2025-10-15 03:32 | Inpatient (IN) | payer MEDICARE ==
[2025-10-15 04:33] LABS: #Basophils 0.05 10x3/uL (0.0-0.2); #Eosinophils 0.06 10x3/uL (0.0-0.7); #Monocytes 0.66 10x3/uL (0.11-0.59); #Neutrophils 2.15 10x3/uL (1.40-6.50); %Basophils 1.2 % (0.0-1.0); %Eosinophils 1.5 % (0.0-10.0); %Lymphocytes 27.9 % (21.0-51.0); %Monocytes 16.1 % (0.0-10.0); %Neutrophils 52.6 % (42.0-75.0); Hematocrit 30.6 % (36.0-47.0); Hemoglobin 10.8 g/dL (12.0-16.0); Mean Corpuscular Hemoglobin 33.1 pg (27.0-31.0); Mean Corpuscular Volume 93.9 fL (78.0-98.0); Platelet Count 74 10x3/uL (130-400); Red Blood Cell (RBC) Count 3.26 mill/uL (4.20-5.40); White Blood Cell (WBC) Count 4.09 10x3/uL (4.8-10.8)
[2025-10-15 04:35] LABS: Bacteria/HPF None Seen HPF (None Seen); CAUTI Indications for Culture Alt mental st,lethar; Cocaine Metabolite Screen Negative (Negative); Glucose, Urine (Dipstick) Normal (Negative); Leukocyte Negative Leu/uL (Negative); Protein, Urine (Dipstick) 70 mg/dL (Neg-Trace); RBC/HPF 0-3 HPF (0-3); Specific Gravity, Urine 1.028 (1.002-1.036); THC/Cannabinoid Screen Negative (Negative); Tricyclic Screen Negative (Negative); WBC/HPF 0-3 HPF (0-3)
[2025-10-15 04:37] LABS: Urine Culture Reflex No No
[2025-10-15 04:38] LABS: Acetaminophen Less than 10 mcg/mL (Less than 10); INR-International Normal Ratio 1.2; PTT 32.8 sec (22.9-36.1); Prothrombin Time 15.0 sec (12.0-14.7); Salicylate Less than 8.0 mg/dL (Less than 8.0)
[2025-10-15 04:39] LABS: ALT (SGPT) 13 U/L (Less than 34); AST (SGOT) 25 U/L (11-34); Albumin 3.3 g/dL (3.1-4.5); Alkaline Phosphatase 29 U/L (40-110); Anion Gap 14 mmol/L (10-20); BUN (Urea Nitrogen) 13 mg/dL (9.8-20.1); Bilirubin, Total 0.6 mg/dL (0.3-1.2); Calc. Creatinine Clearance 0 mL/min (70-130); Calcium 8.8 mg/dL (7.8-10.44); Carbon Dioxide 26 mmol/L (23-31); Chloride 99 mmol/L (98-107); Globulin 2.6 g/dL (2.4-3.5); Glucose 99 mg/dL (83-110); Potassium 2.6 mmol/L (3.5-5.1); Sodium 136 mmol/L (136-145)
[2025-10-15] MEDS ORDERED: NS 0.9% w/ 20 MEQ KCL 1,000 ML ONE (04:48)
[2025-10-15] MEDS ORDERED: Potassium Bicarbonate/Cit Ac 20 MEQ TAB ONE (04:50)
[2025-10-15 04:56] LABS: Platelet Adequacy Comment Platelets Decreased; Smudge Cells 1.1 %
[2025-10-15] MEDS ORDERED: Magnesium 2 GM/50 ML BAG (IN WATER) ONE (05:11)
[2025-10-15] MEDS ORDERED: Ondansetron PF 4 MG/2 ML Vial IVP PRN (05:34)
[2025-10-15] MEDS ORDERED: Acetaminophen 325 MG TAB PO PRN (05:34)
[2025-10-15 06:03] LABS: Magnesium 1.4 mg/dL (1.6-2.6)
[2025-10-15 06:36] VITALS: BMI 16.5
[2025-10-15] MEDS ORDERED: Divalproex Sodium DR 500 MG TAB PO SCH (09:00)
[2025-10-15] MEDS ORDERED: Potassium Chloride 40 MEQ in Premix 1 BAG IVPB SCH (09:15)
[2025-10-15] MEDS: Divalproex Sodium 250 MG ER.TAB PO SCH ×2 (09:54→20:41)
[2025-10-15] MEDS: Metoprolol Succinate XL 50 MG ER.TAB PO SCH (09:54)
[2025-10-15] MEDS: Magnesium 2 GM/50 ML(in water) 2 GM in Premix 1 BAG IVPB SCH (09:55)
[2025-10-15] MEDS: Aspirin 81 mg Enteric Coated Tablet PO SCH (09:55)
[2025-10-15] MEDS: Potassium Chloride 20 MEQ in Premix 1 BAG IVPB SCH ×2 (10:32→17:00)
[2025-10-15] MEDS: QUEtiapine 25 MG TAB PO SCH ×2 (12:08→20:41)
[2025-10-15 17:11] LABS: Anion Gap 16 mmol/L (10-20); BUN (Urea Nitrogen) 7 mg/dL (9.8-20.1); Calc. Creatinine Clearance 62 mL/min (70-130); Calcium 8.8 mg/dL (7.8-10.44); Carbon Dioxide 23 mmol/L (23-31); Chloride 100 mmol/L (98-107); Glucose 96 mg/dL (83-110); Magnesium 2.6 mg/dL (1.6-2.6); Potassium 4.1 mmol/L (3.5-5.1); Sodium 135 mmol/L (136-145)
[2025-10-15 18:48] LABS: HIV (1/2) Antibody/Antigen NONREACTIVE (NonReactive); HIV 1/2 INDEX 0.06 S/CO (<1.00)
[2025-10-15 19:00] LABS: Vitamin B12 655 pg/mL (211-911)
[2025-10-15] MEDS: Losartan 25 MG TAB PO SCH (20:42)
[2025-10-15] MEDS ORDERED: Non-Formulary Item 1 EACH (Mirtazapine [Mirtazapine] 15 MG Tab) PO SCH (21:00)
[2025-10-15] MEDS ORDERED: levETIRAcetam 500 MG TAB PO SCH ×2 (21:00)
[2025-10-15] MEDS: levETIRAcetam 500 MG TAB PO SCH (23:20)
[2025-10-16 05:09] LABS: Anion Gap 10 mmol/L (10-20); BUN (Urea Nitrogen) 13 mg/dL (9.8-20.1); Calc. Creatinine Clearance 63 mL/min (70-130); Calcium 8.4 mg/dL (7.8-10.44); Carbon Dioxide 23 mmol/L (23-31); Chloride 103 mmol/L (98-107); Glucose 79 mg/dL (83-110); Magnesium 2.1 mg/dL (1.6-2.6); Potassium 3.9 mmol/L (3.5-5.1); Sodium 132 mmol/L (136-145)
[2025-10-16 05:14] LABS: #Basophils 0.05 10x3/uL (0.0-0.2); #Eosinophils 0.08 10x3/uL (0.0-0.7); #Monocytes 0.83 10x3/uL (0.11-0.59); #Neutrophils 3.39 10x3/uL (1.40-6.50); %Basophils 0.9 % (0.0-1.0); %Eosinophils 1.4 % (0.0-10.0); %Lymphocytes 22.9 % (21.0-51.0); %Monocytes 14.6 % (0.0-10.0); %Neutrophils 59.8 % (42.0-75.0); Hematocrit 29.3 % (36.0-47.0); Hemoglobin 10.1 g/dL (12.0-16.0); Mean Corpuscular Hemoglobin 33.2 pg (27.0-31.0); Mean Corpuscular Volume 96.4 fL (78.0-98.0); Platelet Count 71 10x3/uL (130-400); Red Blood Cell (RBC) Count 3.04 mill/uL (4.20-5.40); White Blood Cell (WBC) Count 5.67 10x3/uL (4.8-10.8)
[2025-10-16] MEDS: Cholecalciferol 1,000 UNITS (25 MCG) TAB PO SCH (09:00)
[2025-10-16 10:04] VITALS: BMI 16.5
[2025-10-16 11:25] LABS: Syphilis Antibody Index 0.16 S/CO (<1.00 Non-Reactive)
[2025-10-16 11:40] VITALS: BP 100/58; TEMP 97.8
[2025-10-16 12:05] LABS: dsDNA IgG Antibody 0.7 IU/mL (<10 Negative)
[2025-10-16 12:08] LABS: ANA Symphony (Qualitative) Negative (Negative); ANA Symphony (Quantitative) Less than 0.1 Ratio (< 0.7 Negative)
[2025-10-16] MEDS ORDERED: Divalproex Sodium 250 MG ER.TAB PO SCH (21:00)
== END 2025-10-16 14:14 | disposition home or self-care (01) | DRG 884 ==
LOC: ERS 03:32 → 2NO 05:19 → OBSVTOIN 11:50
PROVIDERS: ADMIT Internal Medicine; ATTEND Internal Medicine
DX: F03.90 Unspecified dementia, unspecified severity, without behavioral disturbance, psychotic disturbance, mood disturbance, and anxiety (principal); G93.41 Metabolic encephalopathy; D61.818 Other pancytopenia; F05 Delirium due to known physiological condition; I10 Essential (primary) hypertension; E78.5 Hyperlipidemia, unspecified; I25.10 Atherosclerotic heart disease of native coronary artery without angina pectoris; Z98.890 Other specified postprocedural states; Z79.899 Other long term (current) drug therapy; Z85.3 Personal history of malignant neoplasm of breast; Z88.0 Allergy status to penicillin; Z88.8 Allergy status to other drugs, medicaments and biological substances; E87.6 Hypokalemia; E83.42 Hypomagnesemia; G40.909 Epilepsy, unspecified, not intractable, without status epilepticus
CPT/HCPCS: 36415; 51701; 70450; 71045; 72125; 80048; 80053; 80164; 80177; 80306; 80307; 81001; 82140; 82607; 83735; 85025; 85610; 85730; 86038; 86141; 86225; 86780; 87389; 93005; 93010; 96365; 96368; 96376; G0378; J3475; J3480

== ENCOUNTER 2025-11-13 14:58 | Emergency (ER) | payer MEDICARE ==
[2025-11-13 16:47] LABS: #Basophils 0.04 10x3/uL (0.0-0.2); #Eosinophils Less than 0.03 10x3/uL (0.0-0.7); #Monocytes 0.90 10x3/uL (0.11-0.59); #Neutrophils 12.49 10x3/uL (1.40-6.50); %Basophils 0.3 % (0.0-1.0); %Eosinophils 0.0 % (0.0-10.0); %Lymphocytes 4.1 % (21.0-51.0); %Monocytes 6.4 % (0.0-10.0); %Neutrophils 88.9 % (42.0-75.0); Hematocrit 32.7 % (36.0-47.0); Hemoglobin 11.5 g/dL (12.0-16.0); Mean Corpuscular Hemoglobin 33.0 pg (27.0-31.0); Mean Corpuscular Volume 94.0 fL (78.0-98.0); Platelet Count 131 10x3/uL (130-400); Red Blood Cell (RBC) Count 3.48 mill/uL (4.20-5.40); White Blood Cell (WBC) Count 14.05 10x3/uL (4.8-10.8)
[2025-11-13 17:00] LABS: ALT (SGPT) 11 U/L (Less than 34); AST (SGOT) 21 U/L (11-34); Albumin 3.5 g/dL (3.1-4.5); Alkaline Phosphatase 36 U/L (40-110); Anion Gap 13 mmol/L (10-20); BUN (Urea Nitrogen) 7 mg/dL (9.8-20.1); Bilirubin, Total 0.4 mg/dL (0.3-1.2); Calc. Creatinine Clearance 0 mL/min (70-130); Calcium 8.8 mg/dL (7.8-10.44); Carbon Dioxide 26 mmol/L (23-31); Chloride 99 mmol/L (98-107); Globulin 2.9 g/dL (2.4-3.5); Glucose 107 mg/dL (83-110); Potassium 3.5 mmol/L (3.5-5.1); Sodium 134 mmol/L (136-145)
[2025-11-13] MEDS ORDERED: OLANZapine 10 MG VIAL IM ONE (17:15)
[2025-11-13] MEDS ORDERED: Droperidol 5 MG/2 ML VIAL ONE (19:32)
[2025-11-13 20:20] LABS: Bacteria/HPF None Seen HPF (None Seen); CAUTI Indications for Culture Alt mental st,lethar; Glucose, Urine (Dipstick) Normal (Negative); Leukocyte Negative Leu/uL (Negative); Protein, Urine (Dipstick) Negative (Neg-Trace); RBC/HPF None Seen HPF (0-3); Specific Gravity, Urine 1.011 (1.002-1.036); WBC/HPF None Seen HPF (0-3)
[2025-11-13 20:24] LABS: Urine Culture Reflex No No
[2025-11-13] MEDS ORDERED: levETIRAcetam 500 MG (5 mL) VIAL ONE (22:25)
== END 2025-11-13 23:45 | disposition home or self-care (01) ==
LOC: ERS 14:58
DX: R56.9 Unspecified convulsions (principal); R41.0 Disorientation, unspecified; D72.829 Elevated white blood cell count, unspecified; I25.10 Atherosclerotic heart disease of native coronary artery without angina pectoris; I10 Essential (primary) hypertension
CPT/HCPCS: 51701; 70450; 80053; 80177; 81001; 83605; 84146; 85025; 93005; 96361; 96365; 96372; 96375; 99285; J1790; J1953; J2060; 36415